=== PATIENT | female | born 1955 | race Caucasian/White ===

== ENCOUNTER → 2018-02-05 | Outpatient (CLI) | payer MEDICARE ==
[~2018-02-05] MED LIST: CONTRAST GIVEN. MC
[2018-02-05] MEDS: LIDOCAINE WITH 8.4% SOD BICARB 3 ML DISP.SYRIN. INJ (12:29)
[2018-02-05] MEDS: IOHEXOL 300 MG/ML 50 ML VIAL. INT ART (12:30)
[2018-02-05] MEDS: methylPREDNISolone ACETATE 80 MG/ML VIAL. INJ (12:30)
[2018-02-05] MEDS: BUPIVACAINE 0.5% 50 ML VIAL. INJ (12:30)
== END | disposition home or self-care (01) ==
LOC: RAD 11:34
DX: M16.12 Unilateral primary osteoarthritis, left hip (principal); M51.36 Other intervertebral disc degeneration, lumbar region
CPT/HCPCS: 20605; 77002; J1040; J3490; Q9967

== ENCOUNTER 2020-05-03 13:19 | Inpatient (IN) | payer MEDICARE ==
[~2020-05-03] VITALS: Ht 177.8 cm; Wt 121.9 kg
--- NOTE | 2020-05-03 13:49 | PHYS DOC ---
Past Medical History Past Medical History: Hypertension Drug Use: None General Adult EDM: Chief Complaint: WEAKNESS/GENERALIZED HPI: HPI: Patient is a 64 year old female who presents with left-sided weakness. Patient's last known normal was 2 days ago when she had paralysis of her left leg and left arm. Patient states this lasted for hours and she has had persistent weakness and fatigue since then. Patient denies any pain other than some pain that is chronic in her left leg. Patient denies any recent illnesses such as fever, chills, cough, vomiting or diarrhea. Patient denies any shortness of breath. Review of Systems: Review of Systems: Constitutional: Denies fever or chills. [] Eyes: Denies change in visual acuity. [] HENT: Denies nasal congestion or sore throat. [] Respiratory: Denies cough or shortness of breath. [] Cardiovascular: Denies chest pain, complains of chronic edema of the legs GI: Denies abdominal pain, nausea, vomiting, bloody stools or diarrhea. [] : Denies dysuria. [] Musculoskeletal: Denies back pain or joint pain. [] Integument: Denies rash. [] Neurologic: Denies headache complains of left-sided weakness and numbness Endocrine: Denies polyuria or polydipsia. [] Lymphatic: Denies swollen glands. [] Psychiatric: Denies depression or anxiety. [] Heart Score: Risk Factors: Risk Factors: DM, Current or recent (<one month) smoker, HTN, HLP, family history of CAD, obesity. Risk Scores: Score 0 - 3: 2.5% MACE over next 6 weeks - Discharge Home Score 4 - 6: 20.3% MACE over next 6 weeks - Admit for Clinical Observation Score 7 - 10: 72.7% MACE over next 6 weeks - Early Invasive Strategies Current Medications: Current Medications Clopidogrel Bisulfate (Plavix) 75 mg 1X ONCE PO Last administered on 05/03/20at 15:30; Start 05/03/20 at 15:15; Stop 05/03/20 at 15:16; Status DC Ondansetron HCl (Zofran) 4 mg PRN Q8HRS PRN IV NAUSEA/VOMITING; Start 05/03/20 at 15:30; Stop 05/04/20 at 15:29 Allergies: Allergies: Allergies Coded Allergies Type Severity Reaction Last Updated Verified No Known Drug Allergies 02/05/18 No Physical Exam: PE: Constitutional: Well developed, well nourished, no acute distress, non-toxic appearance. [] HENT: Normocephalic, atraumatic, bilateral external ears normal, no trismus nose normal. [] Eyes: PERRLA, EOMI, conjunctiva normal, no discharge. [] Neck: Normal range of motion, no tenderness, supple, no stridor. [] Cardiovascular: Tachycardic, peripheral pulses are intact, cap refill is brisk Lungs & Thorax: Bilateral breath sounds clear, no respiratory distress Abdomen soft, no tenderness, no masses, no pulsatile masses. [] Skin: Warm, dry, no erythema, no rash. [] Back: No tenderness, no CVA tenderness. [] Extremities: 2-3+ bilateral lower extremities edema, weakness to left lower extremity Neurologic: Alert and oriented X 3, weakness to left lower extremity, mild weakness left upper extremity, decreased sensation to the left side, cranial nerves II through XII grossly intact Psychologic: Affect normal, judgement normal, mood normal. [] Current Patient Data: Labs: Laboratory Tests Test 05/03/20 14:05 White Blood Count 7.0 x10^3/uL Red Blood Count 4.29 x10^6/uL Hemoglobin 12.3 g/dL Hematocrit 36.3 % Mean Corpuscular Volume 85 fL Mean Corpuscular Hemoglobin 29 pg Mean Corpuscular Hemoglobin Concent 34 g/dL Red Cell Distribution Width 13.0 % Platelet Count 177 x10^3/uL Neutrophils (%) (Auto) 70 % Lymphocytes (%) (Auto) 23 % Monocytes (%) (Auto) 5 % Eosinophils (%) (Auto) 2 % Basophils (%) (Auto) 1 % Neutrophils # (Auto) 4.9 x10^3/uL Lymphocytes # (Auto) 1.6 x10^3/uL Monocytes # (Auto) 0.3 x10^3/uL Eosinophils # (Auto) 0.1 x10^3/uL Basophils # (Auto) 0.0 x10^3/uL Prothrombin Time 13.3 SEC Prothromb Time International Ratio 1.1 Activated Partial Thromboplast Time 32 SEC Sodium Level 139 mmol/L Potassium Level 4.4 mmol/L Chloride Level 101 mmol/L Carbon Dioxide Level 29 mmol/L Anion Gap 9 Blood Urea Nitrogen 26 mg/dL Creatinine 0.8 mg/dL Estimated GFR (Cockcroft-Gault) 71.8 BUN/Creatinine Ratio 33 Glucose Level 304 mg/dL Calcium Level 9.5 mg/dL Total Bilirubin 0.3 mg/dL Aspartate Amino Transf (AST/SGOT) 17 U/L Alanine Aminotransferase (ALT/SGPT) 21 U/L Alkaline Phosphatase 122 U/L Troponin I Quantitative < 0.017 ng/mL Total Protein 7.4 g/dL Albumin 3.4 g/dL Albumin/Globulin Ratio 0.9 Current Medications Medications (Trade) Dose Ordered Sig/John Route PRN Reason Start Time Stop Time Status Last Admin Dose Admin Clopidogrel Bisulfate (Plavix) 75 mg 1X ONCE PO 05/03/20 15:15 05/03/20 15:16 DC 05/03/20 15:30 Ondansetron HCl (Zofran) 4 mg PRN Q8HRS PRN IV NAUSEA/VOMITING 05/03/20 15:30 05/04/20 15:29 Vital Signs: Vital Signs Date Time Temp Pulse Resp B/P (MAP) Pulse Ox O2 Delivery O2 Flow Rate FiO2 05/03/20 13:43 98.1 105 18 198/108 (138 94 Room Air 98.1 EKG: EKG: [] EKG interpreted by me sinus tach with a rate of 103, left axis deviation, normal intervals, nonspecific ST changes Radiology/Procedures: Radiology/Procedures: [][facility] [address] [place] [address] IMAGING REPORT Signed PATIENT: BESSIE SHOEMAKER ACCOUNT: [id number] : 1955 LOCATION: ER AGE: 64 SEX: F EXAM STATUS: REG ER ORD. PHYSICIAN: TOVA MAKI MD REASON: LEFT WEAKNESS PROCEDURE: CT HEAD WO CONTRAST CT Head W/O Contrast: History: Reason: LEFT WEAKNESS / Spl. Instructions: / History: Comparison: none Axial images were obtained without contrast. The koch and white matter appears normal and symmetrical for the patients age. There is no mass effect, extraaxial fluid collections or hydrocephalus. There is no gross bleed. There is no focal loss of koch-white matter distinction to suggest acute ischemia, i.e. stroke. Impression: No acute findings. RS Compliance Statement: One or more of the following individualized dose reduction techniques were utilized for this examination: 1. Automated exposure control 2. Adjustment of the mA and/or kV according to patient size 3. Use of iterative reconstruction technique Electronically signed by: Kalen Beach III, MD (05/03/2020 2:41 PM) [facility] DICTATED and SIGNED BY: KALEN BEACH III, MD DATE: 05/03/20 1441 [facility] [address] [place] [address] IMAGING REPORT Signed PATIENT: BESSIE SHOEMAKER ACCOUNT: [id number] : 1955 LOCATION: ER AGE: 64 SEX: F EXAM STATUS: REG ER ORD. PHYSICIAN: TOVA MAKI MD REASON: LEFT SIDED WEAKNESS PROCEDURE: PORTABLE CHEST 1V EXAM: CHEST 1 VIEW History: Left-sided weakness COMPARISON: 08/15/2006 TECHNIQUE: Single portable radiograph of the chest FINDINGS: The cardiac silhouette is unremarkable. The lungs are clear bilaterally. The costophrenic sulci are clear and well demarcated. IMPRESSION: No radiographic evidence of an acute cardiopulmonary process. Electronically signed by: Ton Weaver MD (05/03/2020 2:04 PM) [id number] DICTATED and SIGNED BY: TON WEAVER MD DATE: 05/03/20 1404 Course & Med Decision Making: Course & Med Decision Making Pertinent Labs and Imaging studies reviewed. (See chart for details) [] 1a Level of Consciousness: 0 = Alert; keenly responsive. 1b LOC Questions: 0 = Answers both questions correctly. 1c 0 = Performs both tasks correctly. 2 Best Gaze: 0 = Normal. 3. Visual: 0 = No visual loss. 4. Facial Palsy: 0 = Normal symmetrical movements. 5. Motor Arm: Left 0 = No drift; limb holds 90 (or 45) degrees for full 10 seconds. Right 0 = No drift; limb holds 90 (or 45) degrees for full 10 seconds. 6. Motor Leg: Left 3 = No effort against gravity; leg falls to bed immediately. Right 0 = No drift; leg holds 30-degree position for full 5 seconds. 7. Limb Ataxia: 0 8. Sensory: 1 = [id number] sensory loss; patient feels pinprick is less sharp or is dull on the affected side; or there is a loss of superficial pain with pinprick, but patient is aware of being touched. 9. Best Langauge: 0 = No aphasia; normal. 10 Dysarthria: 0 = Normal. 11. Extinction and Inattention (formerly Neglect): 0 = No abnormality. TOTAL: 4 Patient is not a candidate for TPA or interventional neurology due to last known normal of 2 days ago 60-year-old female presents with strokelike symptoms. Patient has a NIH of 4 but last known normal was over 24 hours ago therefore she not candidate for TPA or interventional neurology. Discussed the case with Dr. Monroy who will admit. Neuro consult has been placed Mj Disclaimer: Mj Disclaimer: This electronic medical record was generated, in whole or in part, using a voice recognition dictation system. Departure Departure Impression: Primary Impression: Acute CVA (cerebrovascular accident) Disposition: 09 ADMITTED INPT THIS HOSP Admitting Physician: Michele Monroy Condition: STABLE Referrals: MICHELE MONROY MD (PCP) TOVA MAKI MD May 03, 2020 13:49
--- NOTE | 2020-05-03 14:07 | RAD ---
EXAM: CHEST 1 VIEW History: Left-sided weakness COMPARISON: 08/15/2006 TECHNIQUE: Single portable radiograph of the chest FINDINGS: The cardiac silhouette is unremarkable. The lungs are clear bilaterally. The costophrenic sulci are clear and well demarcated. IMPRESSION: No radiographic evidence of an acute cardiopulmonary process. Electronically signed by: Ton Weaver MD (05/03/2020 2:04 PM) [id number]
[2020-05-03 14:24] LABS: BASO % 1 % (0-3); EOS # 0.1 x10^3/uL (0.0-0.7); EOS % 2 % (0-3); HEMATOCRIT 36.3 % (36.0-47.0); HEMOGLOBIN 12.3 g/dL (12.0-15.5); LYMPH # 1.6 x10^3/uL (1.0-4.8); LYMPH % 23 % (24-48); MEAN CORPUSCULAR HEMOGLOBIN 29 pg (25-35); MEAN CORPUSCULAR HGB CONC 34 g/dL (31-37); MEAN CORPUSCULAR VOLUME 85 fL (79-100); MONO # 0.3 x10^3/uL (0.0-1.1); MONO % 5 % (0-9); NEUT # 4.9 x10^3/uL (1.8-7.7); NEUT % 70 % (31-73); PLATELET COUNT 177 x10^3/uL (140-400); RED BLOOD COUNT 4.29 x10^6/uL (3.50-5.40)
[2020-05-03 14:33] LABS: CALCIUM 9.5 mg/dL (8.5-10.1); CREATININE 0.8 mg/dL (0.6-1.0); GFR 71.8; POTASSIUM 4.4 mmol/L (3.5-5.1)
[2020-05-03 14:34] LABS: PROTHROMBIN TIME PATIENT 13.3 SEC (11.7-14.0)
[2020-05-03 14:37] LABS: ALBUMIN 3.4 g/dL (3.4-5.0); ALBUMIN/GLOBULIN RATIO 0.9 (1.0-1.7); TOTAL BILIRUBIN 0.3 mg/dL (0.2-1.0); TOTAL PROTEIN 7.4 g/dL (6.4-8.2)
--- NOTE | 2020-05-03 14:43 | RAD ---
CT Head W/O Contrast: History: Reason: LEFT WEAKNESS / Spl. Instructions: / History: Comparison: none Axial images were obtained without contrast. The koch and white matter appears normal and symmetrical for the patients age. There is no mass effect, extraaxial fluid collections or hydrocephalus. There is no gross bleed. There is no focal loss of koch-white matter distinction to suggest acute ischemia, i.e. stroke. Impression: No acute findings. RS Compliance Statement: One or more of the following individualized dose reduction techniques were utilized for this examination: 1. Automated exposure control 2. Adjustment of the mA and/or kV according to patient size 3. Use of iterative reconstruction technique Electronically signed by: Alfred Childers III, MD (05/03/2020 2:41 PM) [facility]
[2020-05-03] MEDS ORDERED: CLOPIDOGREL BISULFATE 75 MG TABLET PO ONE (15:15)
[2020-05-03] MEDS ORDERED: ONDANSETRON PF 4 MG/2 ML VIAL. IV PRN (15:30)
[2020-05-03 17:12] LABS: BILIRUBIN,URINE NEGATIVE (NEG); CLARITY,URINE CLEAR; COLOR,URINE YELLOW; NITRITE,URINE NEGATIVE (NEG); PH,URINE 6.5 (<5.0-8.0); PROTEIN,URINE 30 mg/dL (NEG-TRACE); UROBILINOGEN,URINE 0.2 mg/dL (0.2 mg/dL)
[2020-05-03 17:31] LABS: BACTERIA,URINE FEW /HPF (0-FEW); RBC,URINE RARE /HPF (0-2); WBC,URINE OCC /HPF (0-4)
--- NOTE | 2020-05-03 19:10 | NUR ---
Patient arrived to floor around 1900 via bed. NIH preformed with ER nurse PERRY Roland. NIH score 2. MD Emilie paged in regards to patients arrival to floor.
[2020-05-03 19:44] VITALS: BP 155/77
[2020-05-03] MEDS: CYCLOBENZAPRINE 10 MG TABLET. PO PRN (22:21)
[2020-05-03 23:41] VITALS: BP 165/101
[2020-05-04 02:13] VITALS: BP 153/84
[2020-05-04] MEDS ORDERED: CYCL10TA2 PO (03:19)
[2020-05-04] MEDS ORDERED: TRAM50TA PO (03:19)
[2020-05-04] MEDS ORDERED: SMZ/TMP (03:19)
--- NOTE | 2020-05-04 03:59 | RAD ---
INDICATION: Reason: possible cva / Spl. Instructions: / History: . Left-sided weakness. COMPARISON: None. TECHNIQUE: Color, grayscale and doppler ultrasound images obtained of the carotid system bilaterally. Percent stenosis is estimated using criteria that correlates with NASCET methodology. FINDINGS: Peak systolic velocities are as follows in cm/s: Right Carotid System: CCA: 71 ICA: 89 ICA/CCA Ratio 1.2 Left Carotid System: CCA: 73 ICA: 94 ICA/CCA Ratio 1.3 Vertebral arteries are antegrade bilaterally. Mild intimal thickening and plaque. IMPRESSION: * No hemodynamically significant stenosis of the internal carotid arteries bilaterally. Electronically signed by: Jose Henriquez MD (05/04/2020 3:56 AM) [id number]
[2020-05-04 07:00] VITALS: BP 132/53
--- NOTE | 2020-05-04 08:29 | PDOC2 ---
YINA CANTU CHAINSAW MECHANIC 05/04/20 0829: CARDIAC CONSULT DATE OF CONSULT Date of Consult DATE: 05/04/20 TIME: 08:22 REASON FOR CONSULT Reason for Consult: CVA, echo REFERRING PHYSICIAN Referring Physician: Emilie SOURCE Source: Chart review HISTORY OF PRESENT ILLNESS HISTORY OF PRESENT ILLNESS This is a pleasant 64 yo female admitted for complains of chest pain and left sided weakness.Feeling fatigue. What was alarming for her is the onset of left sided weakness. She has debility and basically WC bound due to bad hip and waiting on hip surgery so she could walk again. No visual or auditory disturbances and no dysarthria. Reports on intermittent chest pain and Thursday she felt midchest tightness that radiated to her shoulder and also jaw tightness with nausea and SOA. She is significantly deconditioned being WC bound and reports of DAI with transfers. No hx of CAD nor prior workup. No hx of CVA, a rrhythmias nor VTE and no falls r injury. She does have DM. PAST MEDICAL HISTORY Cardiovascular: HTN, Hyperlipidemia Pulmonary: No pertinent hx CENTRAL NERVOUS SYSTEM: Other (NO pertinent history) GI: GERD Heme/Onc: No pertinent hx Hepatobiliary: No pertinent hx Psych: No pertinent hx Musculoskeletal: Osteoarthritis Rheumatologic: No pertinent hx Infectious disease: No pertinent hx ENT: No pertinent hx Renal/: No pertinent hx Endocrine: Diabetes PAST SURGICAL HISTORY Past Surgical History: No pertinent history FAMILY HISTORY Family History noncontributory SOCIAL HISTORY Smoke: No ALCOHOL: none Drugs: None Lives: Alone CURRENT MEDICATIONS CURRENT MEDICATIONS Current Medications Medications (Trade) Dose Ordered Sig/John Route PRN Reason Start Time Stop Time Status Last Admin Dose Admin Clopidogrel Bisulfate (Plavix) 75 mg 1X ONCE PO 05/03/20 15:15 05/03/20 15:16 DC 05/03/20 15:30 Cyclobenzaprine HCl (Flexeril) 10 mg PRN Q6HRS PRN PO MUSCLE SPASMS 05/03/20 21:00 05/03/20 22:21 ALLERGIES ALLERGIES: Coded Allergies: morphine (Verified Adverse Reaction, Intermediate, N/V DIZZINESS, 05/03/20) tramadol (Verified Adverse Reaction, Intermediate, N/V DIZZINESS, 05/03/20) ROS Review of System 14 point ROS evaluated with pertinent positives noted per HPI PHYSICAL EXAM General: Alert, Oriented X3, Cooperative, No acute distress HEENT: Atraumatic, Mucous membr. moist/pink Lungs: Clear to auscultation, Normal air movement Heart: Regular rate (SR), Normal S1, Normal S2, No murmurs Abdomen: Soft, No tenderness, Other (obese) Extremities: No cyanosis, Other (chronic leg edema) Skin: No breakdown, No significant lesion Neuro: Normal speech, Sensation intact Psych/Mental Status: Mental status NL, Mood NL MUSCULOSKELETAL: Osteoarthritic changes both hands VITALS/I&O VITALS/I&O: Vital Signs Date Time Temp Pulse Resp B/P (MAP) Pulse Ox O2 Delivery O2 Flow Rate FiO2 05/04/20 07:00 97.5 83 19 132/53 (79) 91 Room Air 97.5 I & O 05/03/20 05/03/20 05/04/20 15:00 23:00 07:00 Intake Total 200 ml 1500 ml Output Total 550 ml Balance -350 ml 1500 ml LABS Lab: Laboratory Tests Test 05/03/20 14:05 05/03/20 17:00 05/04/20 07:04 White Blood Count 7.0 x10^3/uL (4.0-11.0) Red Blood Count 4.29 x10^6/uL (3.50-5.40) Hemoglobin 12.3 g/dL (12.0-15.5) Hematocrit 36.3 % (36.0-47.0) Mean Corpuscular Volume 85 fL (79-100) Mean Corpuscular Hemoglobin 29 pg (25-35) Mean Corpuscular Hemoglobin Concent 34 g/dL (31-37) Red Cell Distribution Width 13.0 % (11.5-14.5) Platelet Count 177 x10^3/uL (140-400) Neutrophils (%) (Auto) 70 % (31-73) Lymphocytes (%) (Auto) 23 % (24-48) L Monocytes (%) (Auto) 5 % (0-9) Eosinophils (%) (Auto) 2 % (0-3) Basophils (%) (Auto) 1 % (0-3) Neutrophils # (Auto) 4.9 x10^3/uL (1.8-7.7) Lymphocytes # (Auto) 1.6 x10^3/uL (1.0-4.8) Monocytes # (Auto) 0.3 x10^3/uL (0.0-1.1) Eosinophils # (Auto) 0.1 x10^3/uL (0.0-0.7) Basophils # (Auto) 0.0 x10^3/uL (0.0-0.2) Prothrombin Time 13.3 SEC (11.7-14.0) Prothrombin Time INR 1.1 (0.8-1.1) Activated Partial Thromboplast Time 32 SEC (24-38) Sodium Level 139 mmol/L (136-145) Potassium Level 4.4 mmol/L (3.5-5.1) Chloride Level 101 mmol/L (98-107) Carbon Dioxide Level 29 mmol/L (21-32) Anion Gap 9 (6-14) Blood Urea Nitrogen 26 mg/dL (7-20) H Creatinine 0.8 mg/dL (0.6-1.0) Estimated GFR (Cockcroft-Gault) 71.8 BUN/Creatinine Ratio 33 (6-20) H Glucose Level 304 mg/dL (70-99) H Calcium Level 9.5 mg/dL (8.5-10.1) Total Bilirubin 0.3 mg/dL (0.2-1.0) Aspartate Amino Transferase (AST) 17 U/L (15-37) Alanine Aminotransferase (ALT) 21 U/L (14-59) Alkaline Phosphatase 122 U/L (46-116) H Troponin I Quantitative < 0.017 ng/mL (0.000-0.055) Total Protein 7.4 g/dL (6.4-8.2) Albumin 3.4 g/dL (3.4-5.0) Albumin/Globulin Ratio 0.9 (1.0-1.7) L Urine Collection Type Unknown Urine Color Yellow Urine Clarity Clear Urine pH 6.5 (<5.0-8.0) Urine Specific [place] 1.020 (1.000-1.030) Urine Protein 30 mg/dL (NEG-TRACE) Urine Glucose (UA) >=1000 mg/dL (NEG) Urine Ketones (Stick) Negative mg/dL (NEG) Urine Blood Trace (NEG) Urine Nitrite Negative (NEG) Urine Bilirubin Negative (NEG) Urine Urobilinogen Dipstick 0.2 mg/dL (0.2 mg/dL) Urine Leukocyte Esterase Small (NEG) Urine RBC Rare /HPF (0-2) Urine WBC Occ /HPF (0-4) Urine Squamous Epithelial Cells Few /LPF Urine Bacteria Few /HPF (0-FEW) Urine Mucus Slight /LPF Glucose (Fingerstick) 239 mg/dL (70-99) H Laboratory Tests 05/03/20 14:05 Laboratory Tests 05/03/20 14:05 ASSESSMENT/PLAN ASSESSMENT/PLAN 1. Possible CVA with left sided weakness 2. Chest pain: typical features for CAD 3. HTN urgency: BP better 4. DM2: BG high 5. Obesity Recommendations TSH, lipids, TTE and A1C Pending CVA workup awaiting MRI, she will need ischemic workup. Continue home statin, lisinopril MARK GALLEGOS MD 05/04/20 1504: CARDIAC CONSULT ASSESSMENT/PLAN ASSESSMENT/PLAN Patient seen and evaluated I agree with our nurse practitioners assessment as above. Possible CVA. Patient feeling better. Neurology work-up in progress. Chest discomfort. No acute ischemic changes. Checking troponin. Echocardiogram. Probable outpatient ischemic work-up. Hypertensive urgency. Blood pressure improved on present medical treatment including lisinopril. Hyperlipidemia. Statins. Diabetes mellitus. As per the primary service. Thank you for allowing us to participate in the care of your patient. YINA CANTU APRN May 04, 2020 08:29 MARK GALLEGOS MD May 04, 2020 15:04
--- NOTE | 2020-05-04 08:56 | PDOC ---
Provider Note Date of Service: DATE: 05/04/20 TIME: 08:55 Provider Note dictated- adding statin, lisin, starting lantus/tradjenta as trulicity na here- mri pending, carotids clear, e- suspect cva is midbrain/ posterior circulation Justifications for Admission Other Justification MICHELE MONROY MD May 04, 2020 08:56
--- NOTE | 2020-05-04 09:26 | HP ---
ADMIT DATE: 05/03/2020 HISTORY OF PRESENT ILLNESS: A 52-year-old white female admission when she thought she had a "reaction to tramadol" which she has taken 2 days prior and since that time, has had headache and some weakness of the left arm, leg and a little bit of drooping of the eye. Stroke was suspected. She was sent to the ER where CT scan revealed no bleeding to cause her headache and she was admitted for further neurologic evaluation. Carotid Dopplers were done, which were clear and the echo and MRI of her head are pending at this time. Hemoglobin A1c as an outpatient has been 10-12. She has failed to tolerate metformin and sulfonylureas, which were initially tried for her diabetes. PAST MEDICAL HISTORY: No other significant surgery. No home medicines. No known allergies or medical problems. SOCIAL HISTORY: She lives alone. She [place] out of town. She is significantly impaired by severe arthritis of her hip and is working on getting a motorized scooter and control her diabetes so that she can have a hip replacement. She is a nonsmoker, nondrinker. FAMILY HISTORY: Unremarkable. REVIEW OF SYSTEMS: Unremarkable. OBJECTIVE: ENT: All within normal limits. NECK: No masses, nodes or bruits. LUNGS: Clear. CARDIOVASCULAR: Regular rate. No murmur or tachycardia. ABDOMEN: Soft, benign, obese and nontender. EXTREMITIES: 1-2+ present. Pedal pulses mildly diminished in her feet. NEUROLOGIC: She has . NEUROLOGIC: Very subtle weakness of the left arm and left leg. Speech appears to be intact as did mentation. Cerebellar function grossly unremarkable. Sensory is reduced with dysesthesia present to light touch in both left arm and left leg. ASSESSMENT: Suspect subacute cerebrovascular accident, right sided, likely posterior circulation with midbrain placement. Risk factors will include untreated diabetes primarily. PLAN: Continue workup as above. Aspirin failure, which she takes every day for pain, so Plavix at this point pending Neurologic consultation. MICHELE MONROY MD DR: CHARLEE/kervin JOB#: [id number] / [id number]
--- NOTE | 2020-05-04 10:17 | PDOC2 ---
NEUROLOGY CONSULT Date of Service DOS: DATE: 05/04/20 TIME: 10:11 Reason for Consult Reason for Consult: Stroke symptoms, left-sided weakness Referring Physician Referring Physician: Dr. Henriquez Source Source: Chart review, Patient History of Present Illness History of Present Illness The patient is a 64-year-old right-handed female who took some tramadol on Thursday, 05/01, and noticed complete weakness on the left side of her body. This resolved after several hours and she still has some numbness on the left side. She saw Dr. Henriquez yesterday in the office and he sent her on to the emergency department. She denies any prior history of stroke, seizure, or head injury. She has had poor control of her diabetes and has chronic pain mainly from the left hip. She gets around with a walker or wheelchair. Past Medical History Cardiovascular: HTN, Hyperlipidemia CENTRAL NERVOUS SYSTEM: Periperal neuropathy Psych: Anxiety, Depression Endocrine: Diabetes Past Surgical History Past Surgical History: No pertinent history Family History Family History: No pertinent hx, CAD Social History Social History Single, disabled, tobacco or alcohol Current Medications Current Medications Current Medications Clopidogrel Bisulfate (Plavix) 75 mg 1X ONCE PO Last administered on 05/03/20at 15:30; Start 05/03/20 at 15:15; Stop 05/03/20 at 15:16; Status DC Ondansetron HCl (Zofran) 4 mg PRN Q8HRS PRN IV NAUSEA/VOMITING; Start 05/03/20 at 15:30; Stop 05/04/20 at 15:29 Cyclobenzaprine HCl (Flexeril) 10 mg PRN Q6HRS PRN PO MUSCLE SPASMS Last administered on 05/03/20at 22:21; Start 05/03/20 at 21:00 Atorvastatin Calcium (Lipitor) 20 mg QHS PO ; Start 05/04/20 at 21:00 Clopidogrel Bisulfate (Plavix) 75 mg DAILYWBKFT PO ; Start 05/04/20 at 09:00 Insulin Glargine (Lantus Syringe) 30 unit DAILY10 SQ ; Start 05/04/20 at 10:00 Linagliptin (Tradjenta) 5 mg DAILY PO ; Start 05/04/20 at 09:00 Lisinopril (Prinivil) 10 mg DAILY PO ; Start 05/04/20 at 09:00 Active Scripts Active Reported [Smz/Tmp] Cyclobenzaprine Hcl 10 Mg Tablet 1 Tab PO PRN BID PRN Tramadol Hcl 50 Mg Tablet 1 Tab PO TID PRN Allergies Allergies: Coded Allergies: morphine (Verified Adverse Reaction, Intermediate, N/V DIZZINESS, 05/03/20) tramadol (Verified Adverse Reaction, Intermediate, N/V DIZZINESS, 0) ROS Review of System Negative for fever, chills, weight loss, shortness of breath, chest pain, indigestion, hematochezia, melena, and dysuria. Full 14-point review of systems is negative. Physical Exam Physical Examination General: Well-developed, well-nourished white female in no acute distress HEENT: Normocephalic andatraumatic. Temporal arteriespulsatile and nontender. Neck: Supple without bruit, no meningismus Musculoskeletal: Stability:see neurologic. Gait exam:see neurologic. Tone:see neurologic.Strength:see neurologic. Neurological: Mental Status:intact, orientation, memory, attention span/concentration, language, fund of knowledge normal. Cranial Nerves:Pupils equal and reactive to light, extraocular movements areintact, visual valencia are full to confrontation. Facial sensation is normal. There is no facial asymmetry. Vestibulo-ocular reflex is intact. Palate elevates and tongue protrudes in midline. All other cranial related problems are negative except as mentioned before.Reflexes:1+ and symmetric with flexor plantar responses. Motor:Splints left leg due to pain, can develop full strength in all extremities. Coordination:Finger-nose finger is normal. Rapid alternating movements and fine finger movements are intact. Gait:Not tested. Sensory:Stocking loss, worse on the left Vitals VITALS Vital Signs Date Time Temp Pulse Resp B/P (MAP) Pulse Ox O2 Delivery O2 Flow Rate FiO2 05/04/20 07:00 97.5 83 19 132/53 (79) 91 Room Air 97.5 Labs Labs Laboratory Tests Test 05/03/20 14:05 05/03/20 17:00 05/04/20 07:04 05/04/20 09:00 White Blood Count 7.0 x10^3/uL (4.0-11.0) Red Blood Count 4.29 x10^6/uL (3.50-5.40) Hemoglobin 12.3 g/dL (12.0-15.5) Hematocrit 36.3 % (36.0-47.0) Mean Corpuscular Volume 85 fL (79-100) Mean Corpuscular Hemoglobin 29 pg (25-35) Mean Corpuscular Hemoglobin Concent 34 g/dL (31-37) Red Cell Distribution Width 13.0 % (11.5-14.5) Platelet Count 177 x10^3/uL (140-400) Neutrophils (%) (Auto) 70 % (31-73) Lymphocytes (%) (Auto) 23 % (24-48) Monocytes (%) (Auto) 5 % (0-9) Eosinophils (%) (Auto) 2 % (0-3) Basophils (%) (Auto) 1 % (0-3) Neutrophils # (Auto) 4.9 x10^3/uL (1.8-7.7) Lymphocytes # (Auto) 1.6 x10^3/uL (1.0-4.8) Monocytes # (Auto) 0.3 x10^3/uL (0.0-1.1) Eosinophils # (Auto) 0.1 x10^3/uL (0.0-0.7) Basophils # (Auto) 0.0 x10^3/uL (0.0-0.2) Prothrombin Time 13.3 SEC (11.7-14.0) Prothromb Time International Ratio 1.1 (0.8-1.1) Activated Partial Thromboplast Time 32 SEC (24-38) Sodium Level 139 mmol/L (136-145) Potassium Level 4.4 mmol/L (3.5-5.1) Chloride Level 101 mmol/L (98-107) Carbon Dioxide Level 29 mmol/L (21-32) Anion Gap 9 (6-14) Blood Urea Nitrogen 26 mg/dL (7-20) Creatinine 0.8 mg/dL (0.6-1.0) Estimated GFR (Cockcroft-Gault) 71.8 BUN/Creatinine Ratio 33 (6-20) Glucose Level 304 mg/dL (70-99) Calcium Level 9.5 mg/dL (8.5-10.1) Total Bilirubin 0.3 mg/dL (0.2-1.0) Aspartate Amino Transf (AST/SGOT) 17 U/L (15-37) Alanine Aminotransferase (ALT/SGPT) 21 U/L (14-59) Alkaline Phosphatase 122 U/L (46-116) Troponin I Quantitative < 0.017 ng/mL (0.000-0.055) Total Protein 7.4 g/dL (6.4-8.2) Albumin 3.4 g/dL (3.4-5.0) Albumin/Globulin Ratio 0.9 (1.0-1.7) Urine Collection Type Unknown Urine Color Yellow Urine Clarity Clear Urine pH 6.5 (<5.0-8.0) Urine Specific Norris 1.020 (1.000-1.030) Urine Protein 30 mg/dL (NEG-TRACE) Urine Glucose (UA) >=1000 mg/dL (NEG) Urine Ketones (Stick) Negative mg/dL (NEG) Urine Blood Trace (NEG) Urine Nitrite Negative (NEG) Urine Bilirubin Negative (NEG) Urine Urobilinogen Dipstick 0.2 mg/dL (0.2 mg/dL) Urine Leukocyte Esterase Small (NEG) Urine RBC Rare /HPF (0-2) Urine WBC Occ /HPF (0-4) Urine Squamous Epithelial Cells Few /LPF Urine Bacteria Few /HPF (0-FEW) Urine Mucus Slight /LPF Glucose (Fingerstick) 239 mg/dL (70-99) Thyroid Stimulating Hormone (TSH) 1.216 uIU/mL (0.358-3.74) Laboratory Tests Test 05/03/20 14:05 05/03/20 17:00 05/04/20 07:04 05/04/20 09:00 White Blood Count 7.0 x10^3/uL (4.0-11.0) Red Blood Count 4.29 x10^6/uL (3.50-5.40) Hemoglobin 12.3 g/dL (12.0-15.5) Hematocrit 36.3 % (36.0-47.0) Mean Corpuscular Volume 85 fL (79-100) Mean Corpuscular Hemoglobin 29 pg (25-35) Mean Corpuscular Hemoglobin Concent 34 g/dL (31-37) Red Cell Distribution Width 13.0 % (11.5-14.5) Platelet Count 177 x10^3/uL (140-400) Neutrophils (%) (Auto) 70 % (31-73) Lymphocytes (%) (Auto) 23 % (24-48) Monocytes (%) (Auto) 5 % (0-9) Eosinophils (%) (Auto) 2 % (0-3) Basophils (%) (Auto) 1 % (0-3) Neutrophils # (Auto) 4.9 x10^3/uL (1.8-7.7) Lymphocytes # (Auto) 1.6 x10^3/uL (1.0-4.8) Monocytes # (Auto) 0.3 x10^3/uL (0.0-1.1) Eosinophils # (Auto) 0.1 x10^3/uL (0.0-0.7) Basophils # (Auto) 0.0 x10^3/uL (0.0-0.2) Prothrombin Time 13.3 SEC (11.7-14.0) Prothromb Time International Ratio 1.1 (0.8-1.1) Activated Partial Thromboplast Time 32 SEC (24-38) Sodium Level 139 mmol/L (136-145) Potassium Level 4.4 mmol/L (3.5-5.1) Chloride Level 101 mmol/L (98-107) Carbon Dioxide Level 29 mmol/L (21-32) Anion Gap 9 (6-14) Blood Urea Nitrogen 26 mg/dL (7-20) Creatinine 0.8 mg/dL (0.6-1.0) Estimated GFR (Cockcroft-Gault) 71.8 BUN/Creatinine Ratio 33 (6-20) Glucose Level 304 mg/dL (70-99) Calcium Level 9.5 mg/dL (8.5-10.1) Total Bilirubin 0.3 mg/dL (0.2-1.0) Aspartate Amino Transf (AST/SGOT) 17 U/L (15-37) Alanine Aminotransferase (ALT/SGPT) 21 U/L (14-59) Alkaline Phosphatase 122 U/L (46-116) Troponin I Quantitative < 0.017 ng/mL (0.000-0.055) Total Protein 7.4 g/dL (6.4-8.2) Albumin 3.4 g/dL (3.4-5.0) Albumin/Globulin Ratio 0.9 (1.0-1.7) Urine Collection Type Unknown Urine Color Yellow Urine Clarity Clear Urine pH 6.5 (<5.0-8.0) Urine Specific Norris 1.020 (1.000-1.030) Urine Protein 30 mg/dL (NEG-TRACE) Urine Glucose (UA) >=1000 mg/dL (NEG) Urine Ketones (Stick) Negative mg/dL (NEG) Urine Blood Trace (NEG) Urine Nitrite Negative (NEG) Urine Bilirubin Negative (NEG) Urine Urobilinogen Dipstick 0.2 mg/dL (0.2 mg/dL) Urine Leukocyte Esterase Small (NEG) Urine RBC Rare /HPF (0-2) Urine WBC Occ /HPF (0-4) Urine Squamous Epithelial Cells Few /LPF Urine Bacteria Few /HPF (0-FEW) Urine Mucus Slight /LPF Glucose (Fingerstick) 239 mg/dL (70-99) Thyroid Stimulating Hormone (TSH) 1.216 uIU/mL (0.358-3.74) Images Images CT Head W/O Contrast: History: Reason: LEFT WEAKNESS / Spl. Instructions: / History: Comparison: none Axial images were obtained without contrast. The koch and white matter appears normal and symmetrical for the patients age. There is no mass effect, extraaxial fluid collections or hydrocephalus. There is no gross bleed. There is no focal loss of koch-white matter distinction to suggest acute ischemia, i.e. stroke. Impression: No acute findings. Doppler carotids: Peak systolic velocities are as follows in cm/s: Right Carotid System: CCA: 71 ICA: 89 ICA/CCA Ratio 1.2 Left Carotid System: CCA: 73 ICA: 94 ICA/CCA Ratio 1.3 Vertebral arteries are antegrade bilaterally. Mild intimal thickening and plaque. IMPRESSION: * No hemodynamically significant stenosis of the internal carotid arteries bilaterally. Assessment/Plan Assessment/Plan Impression: This is a strange story for a stroke with complete hemiplegia resolving after 5 hours, apparently after taking some tramadol. I suspect this is just some em bellishment on her chronic left hip pain. There is evidence of neuropathy most likely from diabetes. Recommendations: Await brain MRI Rehabilitation screening Stroke orders Aim for discharge as soon as later today if MRI negative. Thank you for letting me help with the patient's care. CLEMENTINA MEIER MD May 04, 2020 10:16
--- NOTE | 2020-05-04 10:22 | RAD ---
EXAM: Brain MRI without contrast. HISTORY: Left-sided weakness. TECHNIQUE: Multiplanar, multisequence magnetic resonance imaging of the brain was performed without contrast. COMPARISON: CT dated 05/03/2020. FINDINGS: There is no restricted diffusion to suggest acute or subacute infarction. There is no susceptibility effect to suggest hemorrhage. There is no mass effect or midline shift. There is no hydrocephalus. There are scattered focal areas of signal change within the cerebral white matter, a nonspecific finding which is most commonly due to chronic small vessel disease in patients of this age. There are normal flow voids within the cerebral vessels. No calvarial lesion is seen. The orbits are unremarkable. There is a suspected mucous retention cyst within the left superior sphenoid sinus. The mastoid air cells are clear. IMPRESSION: 1. No acute intracranial finding. 2. Scattered focal areas of signal change within the cerebral white matter, most commonly due to chronic small vessel disease in patients of this age. Electronically signed by: Debi Lynne MD (05/04/2020 10:19 AM) [id number]
[2020-05-04] MEDS: LINAGLIPTIN 5 MG TABLET PO SCH (11:56)
[2020-05-04] MEDS: CLOPIDOGREL BISULFATE 75 MG TABLET PO SCH (11:56)
[2020-05-04] MEDS: LISINOPRIL 10 MG TABLET PO SCH (11:56)
--- NOTE | 2020-05-04 11:56 | NUR ---
SS following for discharge planning. SS reviewed pt chart and discussed with pt RN. Pt is from home and is currently on room air. PT/OT/ ST ordered. SS will continue to follow for discharge planning.
[2020-05-04] MEDS: INSULIN GLARGINE SYRINGE. SQ SCH (12:03)
--- NOTE | 2020-05-04 13:27 | NUR ---
Bedside Swallow Evaluation completed. Please refer to full report in intervention section for additional details. Impressions: Functional oropharyngeal swallow w/o s/s aspiration. Pt appears at low risk of aspiration for all consistencies. Mastication inefficiency is present d/t missing and broken teeth, however pt independently manages and reports this has been an ongoing issue for years. Recommendations: Continue regular diet w/ thin liquids. General swallow precautions. No ST f/u indicated at this time. D/w pt at bedside during noon meal. D/w RN.
--- NOTE | 2020-05-04 14:53 | CARD ---
MR#: [id number] Date of Study: 05/04/2020 Ordering Physician: CLEMENTINA MEIER, Referring Physician: CLEMENTINA MEIER, Tech: Linda Avelar APPROVED REPORT EXAM: Two-dimensional echocardiogram with contrast. Other Information Quality : AverageHR: 83bpm Technically limited study due to body habitus. INDICATION CVA/TIA Echo Enhancing Agent Indication: Rule Out Septal Defect Agent/Amount Used: Agitated Saline 10mL 2D DIMENSIONS RVDd3.1 (2.9-3.5cm)Left Atrium(2D)4.2 (1.6-4.0cm) IVSd1.3 (0.7-1.1cm)Aortic Root(2D)3.3 (2.0-3.7cm) LVDd5.1 (3.9-5.9cm)PWd1.2 (0.7-1.1cm) LVDs2.9 (2.5-4.0cm)FS (%) 43.8 % SV91.5 mlLVEF(%)74.7 (>50%) Aortic Valve AoV Peak Nilo.170.9cm/sAoV VTI35.6cm AO Peak GR.11.7mmHgLVOT Peak Nilo.120.7cm/s AO Mean GR.6mmHgAI P 1/2 [id number] Mitral Valve MV E Ufkqqecl75.4cm/sMV DECEL [id number] MV A Fspjsdsn260.3cm/sE/A Ratio0.7 Pulmonary Valve PV Peak Qsssbucf294.0cm/s Pulmonary Vein S1 Tywcyfnc88.4cm/sD2 Shgxtagd29.8cm/s PVa [id number] LEFT VENTRICLE The left ventricle is normal size. There is mild to moderate concentric left ventricular hypertrophy. The left ventricular systolic function is normal. The Ejection Fraction is 60-65%. There is normal L V segmental wall motion. Transmitral Doppler flow pattern is Grade I-abnormal relaxation pattern. RIGHT VENTRICLE The right ventricle is normal size. There is normal right ventricular wall thickness. The right ventr icular systolic function is normal. ATRIA The left atrium size is normal. The right atrium size is normal. The interatrial septum is intact wit h no evidence for an atrial septal defect or patent foramen ovale as noted on 2-D or Doppler imaging. Bubble study appears negative. AORTIC VALVE The aortic valve is thickened but opens well. Doppler and Color Flow revealed trace aortic regurgitat ion. There is no significant aortic valvular stenosis. Calculated aortic valve area is cm2 with maxim um pressure gradient of 12 mmHg and mean pressure gradient of 6 mmHg. MITRAL VALVE The mitral valve is normal in structure and function. There is no evidence of mitral valve prolapse. There is no mitral valve stenosis. Doppler and Color-flow revealed trace mitral regurgitation. TRICUSPID VALVE The tricuspid valve is normal in structure and function. Doppler and Color Flow revealed no tricuspid valve regurgitation noted. There is no tricuspid valve stenosis. PULMONIC VALVE The pulmonic valve is not well visualized. Doppler and Color Flow revealed trace pulmonic valvular re gurgitation. GREAT VESSELS The aortic root is normal in size. The IVC was not visualized. PERICARDIAL EFFUSION There is no evidence of significant pericardial effusion. Critical Notification Critical Value: No <Conclusion> The left ventricular systolic function is normal. The Ejection Fraction is 60-65%. There is normal LV segmental wall motion. Transmitral Doppler flow pattern is Grade I-abnormal relaxation pattern. Trace mitral regurgitation. There is no evidence of significant pericardial effusion. Bubble study appears negative for interatrial shunt. Recommend ROBB if clinical suspicion is high. Signed by : Leroy Shaffer, Electronically Approved : 05/04/2020 14:52:32
[2020-05-04 15:00] VITALS: BP 126/70
[2020-05-04 19:40] VITALS: BP 119/59
[2020-05-04] MEDS: CYCLOBENZAPRINE 10 MG TABLET. PO PRN (20:43)
[2020-05-04] MEDS ORDERED: ATORVASTATIN CALCIUM 20 MG TABLET PO SCH (21:00)
[2020-05-04 23:19] VITALS: BP 131/67
[2020-05-05 03:45] VITALS: BP 125/60
[2020-05-05 05:11] LABS: HEMOGLOBIN A1C 11.2 % (4.8-5.6)
[2020-05-05 05:27] LABS: CHOLESTEROL/HDL RATIO 2.7
[2020-05-05 07:00] VITALS: BP 124/72
[2020-05-05] MEDS: LINAGLIPTIN 5 MG TABLET PO SCH (08:40)
[2020-05-05] MEDS: CLOPIDOGREL BISULFATE 75 MG TABLET PO SCH (08:40)
[2020-05-05] MEDS: LISINOPRIL 10 MG TABLET PO SCH (08:40)
[2020-05-05] MEDS: INSULIN GLARGINE SYRINGE. SQ SCH (09:44)
--- NOTE | 2020-05-05 10:54 | PDOC ---
Provider Note Date of Service: DATE: 05/05/20 TIME: 10:52 Provider Note [id number] Justifications for Admission Other Justification MICHELE MONROY MD May 05, 2020 10:54
[2020-05-05 11:00] VITALS: BP 115/69
--- NOTE | 2020-05-05 11:53 | DS ---
DATE OF DISCHARGE: 05/05/2020 HOSPITAL SUMMARY: A 64-year-old white female with uncontrolled diabetes due to nontreatment came in with 2-day history of weakness in the left arm and leg, numbness and tingling in the left arm and leg and a little bit of facial droop. There is headache present with no other symptoms. CT scan of the head was negative for bleed and MRI showed no evidence of CVA or brain tumor. Carotid Doppler studies were unremarkable as well as the echocardiogram. Blood sugars were high around 200-300 and hemoglobin A1c was consistent with outpatient values of 11.2. TSH was normal. Renal function was normal as well. Lipid profile showed excellent numbers with a cholesterol of 137, HDL of 50 and LDL of 65. She was treated with Plavix. She takes aspirin only every day and statin and lisinopril were added as well. Her neurologic status has improved. Her symptoms are largely gone. Blood sugars are better with the use of Lantus and she is comfortable to be followed as an outpatient. FINAL DIAGNOSES: 1. Transient ischemic attack, right midbrain, with left sided weakness. 2. Uncontrolled type 2 diabetes mellitus. 3. Severe degenerative joint disease of the left hip. OPERATIONS AND PROCEDURES: None. COMPLICATIONS: None. CONSULTATIONS: Dr. Martel. DISPOSITION: She will start Trulicity 0.75 mg subcutaneous weekly and Januvia 100 mg daily when she gets those from the supplier. She will continue aspirin 81 mg daily. Does not need a statin given her lipids and will follow without blood pressure medicine for now. She takes tramadol for hip pain. She is aware that she needs a hip replacement, but until her diabetes is controlled, she cannot have that done. Office followup is scheduled to see if she responds to the new diabetic medications. MICHELE MONROY MD DR: CHARLEE/kervin JOB#: [id number] / [id number]
--- NOTE | 2020-05-05 12:30 | NUR ---
Discharge Note: BESSIE SHOEMAKER [address] Discharge instructions and discharge home medications reviewed with Patient and a copy given. Reviewed patient medication per Dr. Henriquez patient is to continue her Trulicity, Tradjenta, Flexeril, and ASA. All questions have been answered and understanding verbalized. The following instructions and handouts were given: Stroke Prevention, Diabetic Diet Discontinued lines and drains: IV discontinued. Catheter intact. Bleeding Stopped. Bandage Applied. Pt taken to private vehicle by wheelchair accompanied by FEED PREPARATION OPERATOR and RN. Patient discharged to Home with Self Care.
[2020-05-06] MEDS ORDERED: ASPIRIN CHEWABLE 81 MG TABLET. PO SCH (08:00)
== END 2020-05-05 13:00 | disposition home or self-care (01) | DRG 69 ==
LOC: ER 13:19 → ED HOLD 15:18 → 2 SOUTH 16:23
PROVIDERS: ADMIT Family Medicine; ATTEND Family Medicine
DX: G45.9 Transient cerebral ischemic attack, unspecified (principal); G81.90 Hemiplegia, unspecified affecting unspecified side; E11.65 Type 2 diabetes mellitus with hyperglycemia; E66.9 Obesity, unspecified; E78.5 Hyperlipidemia, unspecified; G83.14 Monoplegia of lower limb affecting left nondominant side; I10 Essential (primary) hypertension; G89.29 Other chronic pain; I16.0 Hypertensive urgency; I25.10 Atherosclerotic heart disease of native coronary artery without angina pectoris; M16.12 Unilateral primary osteoarthritis, left hip; Z99.3 Dependence on wheelchair; F32.9 Major depressive disorder, single episode, unspecified; F41.9 Anxiety disorder, unspecified; K21.9 Gastro-esophageal reflux disease without esophagitis; M19.90 Unspecified osteoarthritis, unspecified site; Z68.38 Body mass index [BMI] 38.0-38.9, adult; Z60.2 Problems related to living alone
CPT/HCPCS: 36415; 70450; 70551; 71045; 80053; 80061; 81001; 82962; 83036; 84443; 84484; 85025; 85610; 85730; 87077; 87086; 87186; 93005; 93306; 93880; J1815; 92610-GN; 99285-25; G0378

== ENCOUNTER 2020-07-26 18:51 | Inpatient (IN) | payer MEDICARE ==
[~2020-07-26] VITALS: Ht 177.8 cm; Wt 137.5 kg
[~2020-07-26 18:51] MED LIST changes: -CONTRAST GIVEN. MC; +CYCL10TA2 PO; +SMZ/TMP; +TRAM50TA PO
[2020-07-26] MEDS ORDERED: LIDOCAINE (700MG/PATCH) PATCH. TD ONE (19:16)
--- NOTE | 2020-07-26 19:47 | PHYS DOC ---
Past Medical History Past Medical History: Hypertension Past Surgical History: No Surgical History Smoking Status: Current Every Day Smoker Alcohol Use: None Drug Use: None General Adult EDM: Chief Complaint: HIP PAIN HPI: HPI: 64-year-old female past medical history significant for obesity, HTN, poorly controlled insulin-dependent diabetes and bilateral hip arthritis, presents to the ED with complaints of severe left hip pain, stating "Did I fracture it?" Took tramadol prior to arrival with minimal relief. Patient states that she uses a seated walker and gets around by moving backwards and extending her legs. No longer can extend her legs to put weight on them, particularly her left hip. Denies any falls or trauma. Is not on any anticoagulants. Follows with Dr. Monroy who has ordered her a home hospital bed and told her her diabetes needs to be better managed prior to any surgery. Review of Systems: Review of Systems: Constitutional: Denies fever or chills. [] Eyes: Denies change in visual acuity. [] HENT: Denies nasal congestion or sore throat. [] Respiratory: Denies cough or shortness of breath. [] Cardiovascular: Denies chest pain or edema. [] GI: Denies abdominal pain, nausea, vomiting, bloody stools or diarrhea. [] : Denies dysuria, urinary or bowel retention or incontinence, Musculoskeletal: Denies back pain or or flank pain Integument: Denies rash or diaphoresis Neurologic: Denies headache, neck pain, saddle anesthesia, focal weakness or sensory changes. [] Endocrine: Denies polyuria or polydipsia. [] Lymphatic: Denies swollen glands. [] Psychiatric: Denies depression or anxiety. [] Heart Score: Risk Factors: Risk Factors: DM, Current or recent (<one month) smoker, HTN, HLP, family history of CAD, obesity. Risk Scores: Score 0 - 3: 2.5% MACE over next 6 weeks - Discharge Home Score 4 - 6: 20.3% MACE over next 6 weeks - Admit for Clinical Observation Score 7 - 10: 72.7% MACE over next 6 weeks - Early Invasive Strategies Current Medications: Current Medications Medications (Trade) Dose Ordered Sig/John Start Time Stop Time Status Last Admin Dose Admin Lidocaine (Lidoderm) 1 patch 1X ONCE 07/26/20 19:16 07/26/20 19:17 DC Allergies: Allergies: Allergies Coded Allergies Type Severity Reaction Last Updated Verified morphine Adverse Reaction Intermediate N/V DIZZINESS 05/03/20 Yes tramadol Adverse Reaction Intermediate N/V DIZZINESS 05/03/20 Yes Physical Exam: PE: Constitutional: Very uncomfortable/crying, difficulty extending hip/knees - has to move very slow (functional level appears that pt is bed-bound) HENT: Normocephalic, atraumatic, Eyes: EOMI, conjunctiva normal, no discharge. Neck: Normal range of motion, supple, Cardiovascular: S1/2 present, regular rhythm Lungs & Thorax: Speaking in full sentences, bilateral equal chest rise, no tachypnea or increased work of breathing Abdomen: soft, no tenderness, Skin: Warm, dry, no erythema, no rash. [] Back: No tenderness, no saddle anesthesia Extremities: Focal left hip tenderness, no bruising or deformity, bilateral pedal edema/habitus related, lower extremity pulses intact Neurologic: Alert and oriented X 3, normal motor function, normal sensory function, no focal deficits noted. [] Psychologic: Affect normal, judgement normal, mood normal. [] EKG: EKG: [] Radiology/Procedures: Radiology/Procedures: IMAGING REPORT Signed PATIENT: BESSIE SHOEMAKER ACCOUNT: [id number] : 1955 LOCATION: ER AGE: 64 SEX: F EXAM STATUS: REG ER ORD. PHYSICIAN: COCO OSORIO DO REASON: left hip severe pain PROCEDURE: CT PELVIS WO CONTRAST Exam: CT pelvis without contrast INDICATION: Left severe hip pain TECHNIQUE: Sequential axial images through the pelvis obtained without IV contrast. Sagittal and coronal reformatted images were reconstructed from the axial data and reviewed. Comparisons: 07/26/2020 radiograph FINDINGS: Visualized intrapelvic structures are unremarkable. There is diffuse osteopenia. No acute fracture is identified. There is severe degenerative change at the left hip joint with osseous remodeling of the femoral head. Mild to moderate osteoarthritic change at the right hip joint is noted. Pubic symphysis and sacroiliac joints are well-maintained. Visualized soft tissues a lower extremities are unremarkable. IMPRESSION: No sequela of acute traumatic injury of the pelvis. Severe/end-stage degenerative changes at the left hip. Exposure: One or more of the following in the visualized dose reduction techniques were utilized for this examination: 1. Automated exposure control 2. Adjustment of the MA and/or KV according to patient size 3. Use of iterative of reconstructive technique Electronically signed by: Génesis Panda MD (07/26/2020 9:16 PM) HILDAJUAN CARLOS DICTATED and SIGNED BY: GÉNESIS PANDA MD DATE: 07/26/[id number] 0 IMAGING REPORT Signed PATIENT: BESSIE SHOEMAKER ACCOUNT: [id number] : 1955 LOCATION: ER AGE: 64 SEX: F EXAM STATUS: REG ER ORD. PHYSICIAN: COCO OSORIO DO REASON: left hip severe pain PROCEDURE: CT PELVIS WO CONTRAST Exam: CT pelvis without contrast INDICATION: Left severe hip pain TECHNIQUE: Sequential axial images through the pelvis obtained without IV contrast. Sagittal and coronal reformatted images were reconstructed from the axial data and reviewed. Comparisons: 07/26/2020 radiograph FINDINGS: Visualized intrapelvic structures are unremarkable. There is diffuse osteopenia. No acute fracture is identified. There is severe degenerative change at the left hip joint with osseous remodeling of the femoral head. Mild to moderate osteoarthritic change at the right hip joint is noted. Pubic symphysis and sacroiliac joints are well-maintained. Visualized soft tissues a lower extremities are unremarkable. IMPRESSION: No sequela of acute traumatic injury of the pelvis. Severe/end-stage degenerative changes at the left hip. Exposure: One or more of the following in the visualized dose reduction t echniques were utilized for this examination: 1. Automated exposure control 2. Adjustment of the MA and/or KV according to patient size 3. Use of iterative of reconstructive technique Electronically signed by: Génesis Panda MD (07/26/2020 9:16 PM) DONAL DICTATED and SIGNED BY: GÉNESIS PANDA MD DATE: 07/26/[id number] 0 Course & Med Decision Making: Course & Med Decision Making Pertinent Labs and Imaging studies reviewed. (See chart for details) Concern for exacerbation of chronic left hip pain with end-stage degenerative joint disease, unable to bear weight. I discussed this with orthopedic surgery Dr. Ocampo. Patient aware hip placement is a long process that requires mu ltiple steps (diabetes management, weight loss, etc.)-is aware surgery is not an immediate option. Will admit patient for pain control and further medical management, accepted by her primary care physician Dr. Monroy. Ortho consult placed for their recommendations. Patient stable at time of admission and agrees with this plan. I have spoken with the patient and/or caregivers. I have explained the patient's condition, diagnosis and treatment plan based on the information available to me at this time. I have answered the patient's and/or caregivers questions and answered any concerns. The patient and/or caregivers have as good an understanding of the patient's diagnosis, condition and treatment plan as can be expected at this point. The patient has been stabilized within the capability of the emergency department. The patient will be transported for further care and management or will be moved to an observation or inpatient service. I have communicated with the staff or medical practitioner taking over this patient's care. Mj Disclaimer: Mj Disclaimer: This electronic medical record was generated, in whole or in part, using a voice recognition dictation system. Departure Departure Impression: Primary Impression: Degenerative joint disease of left hip Disposition: ADMITTED INPT THIS HOSP Admitting Physician: Michele Monroy Condition: STABLE Referrals: MICHELE MONROY MD (PCP) COCO OSORIO DO Jul 26, 2020 19:47
[2020-07-26] MEDS ORDERED: HYDROmorphone 2 MG/ML VIAL IVP ONE ×4 (20:00→20:45)
[2020-07-26] MEDS ORDERED: KETOROLAC 15 MG/ML VIAL. IVP ONE (20:45)
[2020-07-26 20:56] LABS: BASO % 1 % (0-3); EOS # 0.2 x10^3/uL (0.0-0.7); EOS % 3 % (0-3); HEMATOCRIT 35.4 % (36.0-47.0); HEMOGLOBIN 11.8 g/dL (12.0-15.5); LYMPH # 1.5 x10^3/uL (1.0-4.8); LYMPH % 21 % (24-48); MEAN CORPUSCULAR HEMOGLOBIN 29 pg (25-35); MEAN CORPUSCULAR HGB CONC 33 g/dL (31-37); MEAN CORPUSCULAR VOLUME 86 fL (79-100); MONO # 0.5 x10^3/uL (0.0-1.1); MONO % 7 % (0-9); NEUT # 4.9 x10^3/uL (1.8-7.7); NEUT % 69 % (31-73); PLATELET COUNT 187 x10^3/uL (140-400); RED BLOOD COUNT 4.12 x10^6/uL (3.50-5.40); RED CELL DISTRIBUTION WIDTH 13.9 % (11.5-14.5); WHITE BLOOD COUNT 7.2 x10^3/uL (4.0-11.0)
--- NOTE | 2020-07-26 20:56 | RAD ---
Single view pelvis, two-view left hip and two-view left femur dated 07/26/2020. No comparison available. Clinical data indication: Pain. FINDINGS: AP view pelvis shows intact pelvic ring. No displaced fracture. There are severe degenerative change of the left hip joint with bone on bone abutment and subchondral sclerosis. Mild to moderate degenera tive change of the right hip joint. 2 views of the left hip show no displaced fracture. No periostitis or bone destruction. 2 views left femur show intact distal femoral shaft. No apparent bone lesion. There is mild tricompar tmental degenerative change at the knee. No apparent joint effusion. IMPRESSION: 1. No acute bony abnormality. 2. Degenerative changes as described above. There is severe left hip DJD. Electronically signed by: Marco Antonio Mclain MD (07/26/2020 8:54 PM) [id number]
[2020-07-26 21:10] LABS: PROTHROMBIN TIME PATIENT 13.2 SEC (11.7-14.0)
[2020-07-26 21:12] LABS: CALCIUM 9.2 mg/dL (8.5-10.1); CREATININE 0.8 mg/dL (0.6-1.0); GFR 71.8; POTASSIUM 4.8 mmol/L (3.5-5.1)
[2020-07-26 21:17] LABS: ALBUMIN 3.5 g/dL (3.4-5.0); ALBUMIN/GLOBULIN RATIO 0.9 (1.0-1.7); TOTAL BILIRUBIN 0.3 mg/dL (0.2-1.0); TOTAL PROTEIN 7.5 g/dL (6.4-8.2)
--- NOTE | 2020-07-26 21:19 | RAD ---
Exam: CT pelvis without contrast INDICATION: Left severe hip pain TECHNIQUE: Sequential axial images through the pelvis obtained without IV contrast. Sagittal and genaro nal reformatted images were reconstructed from the axial data and reviewed. Comparisons: 07/26/2020 radiograph FINDINGS: Visualized intrapelvic structures are unremarkable. There is diffuse osteopenia. No acute fracture is identified. There is severe degenerative change at the left hip joint with osseous remodeling of the femoral head. Mild to moderate osteoarthritic batista e at the right hip joint is noted. Pubic symphysis and sacroiliac joints are well-maintained. Visualized soft tissues a lower extremities are unremarkable. IMPRESSION: No sequela of acute traumatic injury of the pelvis. Severe/end-stage degenerative changes at the left hip. Exposure: One or more of the following in the visualized dose reduction techniques were utilized for this examination: 1. Automated exposure control 2. Adjustment of the MA and/or KV according to patient size 3. Use of iterative of reconstructive technique Electronically signed by: Génesis Aldridge MD (07/26/2020 9:16 PM) DONAL
[2020-07-26] MEDS ORDERED: MORPHINE SULFATE 4 MG/ML VIAL. IV PRN (22:00)
[2020-07-26] MEDS ORDERED: ONDANSETRON PF 4 MG/2 ML VIAL. IV PRN (22:00)
[2020-07-26] MEDS ORDERED: ACETAMINOPHEN 325 MG TABLET. PO PRN (22:00)
[2020-07-26 23:25] VITALS: BP 127/59
--- NOTE | 2020-07-26 23:25 | NUR ---
Patient admitted from ER to room 436 per cart. Admitting diagnosis: Left hip pain with end stage DJD. Patient is allergic to morphine,trulicity and januvia. Patient is alert and oriented x4. Patient lives alone. Patient stated she twisted her left hip a couple of days ago and came to the hospital to see if her hip was broken. Xrays negative for fractures. Patient uses 2 canes to stand and pivot. Patient is unable to walk more than a couple of steps. Consult placed for Dr. Ocampo to see patient. No skin breakdown noted. Patient does have 3+ pitting edema of lower legs and feet. Will continue to monitor.
--- NOTE | 2020-07-27 00:05 | NUR ---
Patient requested that her IV be taken out of her arm. Site is tender and in a "bad location". IV left out at this time. Patient is on oral pain meds.
[2020-07-27] MEDS ORDERED: oxyCODONE/APAP 5/325 1 TAB TABLET PO PRN ×2 (00:15)
[2020-07-27] MEDS ORDERED: traMADol 50 MG TABLET PO PRN (00:15)
[2020-07-27] MEDS ORDERED: CYCLOBENZAPRINE 10 MG TABLET. PO PRN (00:15)
[2020-07-27 03:04] VITALS: BP 139/68
[2020-07-27 07:00] VITALS: BP 130/66
[2020-07-27] MEDS ORDERED: DEXTROSE 50% 25 GM / 50ML DISP.SYRIN. IV PRN (09:00)
--- NOTE | 2020-07-27 09:03 | PDOC ---
Provider Note Date of Service: DATE: 07/27/20 TIME: 09:00 Provider Note [id number] Justifications for Admission Other Justification MICHELE MONROY MD Jul 27, 2020 09:03
--- NOTE | 2020-07-27 09:19 | HP ---
ADMIT DATE: 07/27/2020 CHIEF COMPLAINT: Fall and leg pain. HISTORY OF PRESENT ILLNESS: A 64-year-old white female, poorly controlled diabetic, who has severe degenerative arthritis of her left hip and had some kind of a twisting injury at home about 2 days prior to admission. She has had increasing pain since that time, which has not been well localized, but she does recall feeling and hearing a "snapping sound" when she fell. X-rays were done in the ER of the pelvis and hip, but not of the knee and below the knee and she has an equal amount of pain in that area. PAST MEDICAL HISTORY: ALLERGIES: LISTED TO MULTIPLE DRUGS. SHE IS INTOLERANT OF JANUVIA AND TRULICITY for diabetes, is now taking a low dose Lantus at home. SOCIAL HISTORY: She is single, lives alone, 2 hours away. Not employed currently. Nondrinker, nonsmoker. FAMILY HISTORY: Unremarkable. REVIEW OF SYSTEMS: No other complaints. OBJECTIVE: ENT: All within normal limits. NECK: No masses, nodes or bruits. LUNGS: Clear. CARDIOVASCULAR: Regular rate. No murmur. ABDOMEN: Obese, soft, benign and nontender. EXTREMITIES: Left leg is shortened and externally rotated. She is tender around the left knee and more tender over the proximal tibia with some swelling there, but no obvious ecchymosis. I did not test range of motion of the knee as it was too painful to even start to move. She has good pedal pulses bilaterally. NEUROLOGIC: Physiologic and nonfocal. ASSESSMENT: Twisting injury to the left leg. I suspect she may have a proximal tibial fracture. She has severe degenerative joint disease of the left hip and poorly controlled diabetes, chronic edema is preexisting conditions. PLAN: A1c, knee and tibial x-rays and further evaluation as indicated. If no bony injury, will need rehab as she lives alone, 2 hours away. MICHELE MONROY MD DR: CHARLEE/kervin JOB#: [id number] / [id number]
--- NOTE | 2020-07-27 09:40 | RAD ---
PROCEDURE: XR LT TIBIA + FIBULA, XR KNEE _3 VIEWS_LT STUDY DATE: 07/27/2020 CLINICAL INDICATION / HISTORY: Reason: injury, PAIN TO ENTIRE LEFT LEG / Spl. Instructions: / Histor y: . TECHNIQUE: AP, lateral, and oblique views of the left knee. COMPARISON: None FINDINGS: The osseous structures are demineralized but intact. The articular surfaces are smooth. J oint space is narrowed medially and there is osteophytic spurring on the medial tibial plateau with m ild subchondral sclerosis. Osteophytic spurring is also evident in the lateral femoral condyle and th e articular surface of the patella in the superior and inferior poles. No intra-articular loose nicole s. The alignment is within normal limits. The soft tissues are unremarkable. No obvious joint effus ion. No radio-opaque foreign bodies are identified. IMPRESSION: Tricompartmental left knee degenerative changes. No fracture or malalignment noted. PROCEDURE: XR LT TIBIA + FIBULA, XR KNEE _3 VIEWS_LT STUDY DATE: 07/27/2020 CLINICAL INDICATION / HISTORY: Reason: injury, PAIN TO ENTIRE LEFT LEG / Spl. Instructions: / Histor y: . TECHNIQUE: AP and lateral views of the left tibia and fibula. COMPARISON: None FINDINGS: AP and lateral views of the left tibia and fibula show no acute fracture, dislocation or donell ne destruction. The soft tissues show mild subcutaneous edema.. IMPRESSION: Subcutaneous edema in the soft tissues of the left leg. No acute osseous abnormality Electronically signed by: Lacie Shaw MD (07/27/2020 9:37 AM) [id number]
--- NOTE | 2020-07-27 09:40 | NUR ---
SW following. Discussed with RN, pt from home alone, room air, ada diet. Pt had xrays this morning, Ortho consulted. No PT/OT or COVID ordered yet. SW will continue to follow.
[2020-07-27 11:00] VITALS: BP 121/48
[2020-07-27] MEDS: POTASSIUM CHLORIDE 10 MEQ TABLET.ER. PO SCH ×2 (11:09→17:23)
[2020-07-27] MEDS: FUROSEMIDE 40 MG TABLET. PO SCH (11:09)
[2020-07-27] MEDS: INSULIN GLARGINE SYRINGE. SQ SCH (11:16)
[2020-07-27 15:00] VITALS: BP 143/69
[2020-07-27 19:00] VITALS: BP 134/80
[2020-07-27 23:13] VITALS: BP 123/58
[2020-07-28 00:09] LABS: HEMOGLOBIN A1C 8.3 % (4.8-5.6)
[2020-07-28 03:05] VITALS: BP 126/47
[2020-07-28 07:00] VITALS: BP 144/86
--- NOTE | 2020-07-28 09:41 | PDOC ---
Provider Note Date of Service: DATE: 07/28/20 TIME: 09:40 Provider Note [id number] Justifications for Admission Other Justification MICHELE MONROY MD Jul 28, 2020 09:41
[2020-07-28] MEDS: POTASSIUM CHLORIDE 10 MEQ TABLET.ER. PO SCH (09:47)
[2020-07-28] MEDS: FUROSEMIDE 40 MG TABLET. PO SCH (09:47)
--- NOTE | 2020-07-28 09:49 | DS ---
DATE OF DISCHARGE: 07/28/2020 HOSPITAL SUMMARY: The patient came in after a fall with severe left leg pain. She has known degenerative joint disease with left hip very severe and x-ray showed severe arthritis in her left knee as well with no fractures in the entire left leg or pelvis. Hemoglobin A1c was 8.3. Blood test unremarkable. She is feeling better and able to bear some weight and is comfortable to be followed as an outpatient. FINAL DIAGNOSES: 1. Left leg strain. 2. Type 2 insulin-dependent diabetes mellitus. 3. Severe degenerative joint disease of the left knee and the left hip. OPERATIONS, PROCEDURES, COMPLICATIONS: None. CONSULTATIONS: Dr. Ocampo. DISPOSITION: Continue home meds including the addition of Lantus 20 units, which she has not started yet and will start soon to treat her diabetes. She will consider hip replacement in the near future as her diabetes is better controlled now and she should be able to heal. Rest of meds remain the same. MICHELE MONROY MD DR: CHARLEE/nts JOB#: [id number] / [id number]
[2020-07-28] MEDS: INSULIN GLARGINE SYRINGE. SQ SCH (09:52)
--- NOTE | 2020-07-28 10:57 | NUR ---
pt is discharged home with self care at this time via wheelchair via LILIANA Urbano. pt is in stable condition. pt had no IV to remove. pt has all belongings with her. pt received discharge instructions and stated she had no further questions for me.
--- NOTE | 2020-07-29 21:03 | CONS ---
DATE OF CONSULTATION: 07/26/2020 ORTHOPEDIC CONSULTATION REQUESTING PHYSICIAN: ____ from [facility]. REASON FOR CONSULTATION: Left hip pain and inability to ambulate. HISTORY OF PRESENT ILLNESS: The patient is a 64-year-old female who has been having difficulty getting around for some time. She has been having difficulty moving her left hip with pain and grinding, now difficulty of severe left hip pain, inability to bear weight and was concerned that she may have fractured the hip that it was so painful. She primarily has pain in the left groin area, also complains of pain in the left knee or at least down to the knee. She has been compensating ambulating using a walker with a seat on it and has been sitting on that and pushing her legs out to roll herself along to get around her house and states that she really cannot put weight on the left leg because of the severe pain. She denies any traumatic episode. PAST MEDICAL HISTORY: Significant for insulin-dependent diabetes that is poorly controlled and also has hypertension. PAST SURGICAL HISTORY: She denies any previous surgical history. SOCIAL HISTORY: She does smoke cigarettes, denies alcohol or drug use. ALLERGIES: INCLUDE MORPHINE AND TRAMADOL. MEDICATIONS: List is reviewed. REVIEW OF SYSTEMS: Again, denies any trauma, but severe left lower extremity pain. Diabetes, which is reportedly poorly controlled and Dr. Henriquez had previously told her that her diabetes needs to be better managed prior to surgery consideration. She just due to her difficulty getting around also has a home hospital bed. Denies any focal weakness, numbness, tingling, chest pain, shortness of breath, fever, chills or other constitutional symptoms, otherwise negative review of systems beyond what is in her medical history. PHYSICAL EXAMINATION: EXTREMITIES: She has significant crepitus with any movement of the left hip, does radiate pain down toward the left knee. Left knee is painful, particularly along the medial joint line and left knee has slight varus. No gross ligamentous instability. Leg lengths are equal. Negative straight leg raise sign present. She has some lower extremity edema bilaterally, but no ankle pain other than just diffuse discomfort. Otherwise normal examination of the contralateral right hip, knee and ankle. Overall intact motor function, distal pulses, sensation, reflexes, skin in both lower extremities throughout. IMPRESSION: Recent exacerbation, atraumatic of left hip and knee pain. TREATMENT PLAN: I went over with her that she has severe degradation with [id number] in her left hip, often that some of this left hip pain can be referred to her left knee. She does have some arthritic changes in the left knee as well and eventually would really probably benefit from a total hip arthroplasty, but her current expectation of getting her hip done on this hospital admission is unrealistic for several reasons. She is poorly controlled in terms of her diabetes and that along with her smoking history really severely increased her risk for infection, wound complications or other problems associated with the surgery. I told her that we would really have to make planning to get those issues under control and that even her body mass index is above the typical threshold of 40 and that I would really prefer her to make some progress to weight loss prior to making plans for surgery, we could work through those issues with Dr. Henriquez in the interim and I think the weight loss would probably help with the diabetes, among other issues as well. A followup can be in the clinic after some of these issues are better addressed. BENJY GU MD DR: POLO/kervin JOB#: [id number] / [id number]
[2020-08-31] MEDS ORDERED: POTA20TA4 PO (08:19)
[2020-08-31] MEDS ORDERED: CLIN300C9 PO (08:19)
[2020-08-31] MEDS ORDERED: FURO40TA4 PO (08:19)
[2020-08-31] MEDS ORDERED: INSU100V8 SQ (08:19)
== END 2020-07-28 10:59 | disposition home or self-care (01) | DRG 563 ==
LOC: ER 18:51 → 4 NORTH 22:28
PROVIDERS: ADMIT Family Medicine; ATTEND Family Medicine
DX: S86.912A Strain of unspecified muscle(s) and tendon(s) at lower leg level, left leg, initial encounter (principal); E11.65 Type 2 diabetes mellitus with hyperglycemia; M16.0 Bilateral primary osteoarthritis of hip; F17.210 Nicotine dependence, cigarettes, uncomplicated; I10 Essential (primary) hypertension; M17.12 Unilateral primary osteoarthritis, left knee; X50.1XXA Overexertion from prolonged static or awkward postures, initial encounter; Z79.4 Long term (current) use of insulin; E66.9 Obesity, unspecified; W18.39XA Other fall on same level, initial encounter; Y93.89 Activity, other specified; Y92.89 Other specified places as the place of occurrence of the external cause; Y99.8 Other external cause status; Z88.8 Allergy status to other drugs, medicaments and biological substances; Z60.2 Problems related to living alone
CPT/HCPCS: 36415; 72192; 73502; 73552; 73562; 73590; 80053; 82962; 83036; 85025; 85610; 85730; 96374; 96375; 96376; 99285; J1170; J1815; J1885; G0378

== ENCOUNTER 2020-08-28 17:13 | Inpatient (IN) | payer MEDICARE ==
[~2020-08-28] VITALS: Ht 177.8 cm; Wt 129.2 kg
[2020-08-28] MEDS ORDERED: fentaNYL PF VIAL 100 MCG/2 ML VIAL IVP ONE (17:45)
--- NOTE | 2020-08-28 17:55 | PHYS DOC ---
Past Medical History Past Medical History: Diabetes-Type II, Hypertension, Other Additional Past Medical Histor: neuropathy and osteoarthritis Past Surgical History: No Surgical History Smoking Status: Former Smoker Alcohol Use: None Drug Use: None General Adult EDM: Chief Complaint: CELLULITIS HPI: HPI: Patient is a 64 year old female who presents with here after driving herself here from [facility] she had gone to the hospital there on August 23 due to left leg edema and pain that had been going on for 2 days prior to that. She does have chronic edema in by her bilateral legs but she states this it has increased and there has been increased redness and pain to the left leg. Patient denies any injury here but when looking back at the paperwork sent over by that ER it states that she thinks that she may have twisted her left knee or left ankle 2 days prior to arrival to that ER and the ice and snow try to get out of a car. She did not fall at that time. Upon her arrival here she states that Dr. Monroy sent her here for admission and that the hospital in [place] had put her on clindamycin that she been taking for cellulitis and they did prescribe her furosemide but she has not yet picked that up. She has a insulin-dependent diabetic and has hypertension, neuropathy and osteoarthritis. She does take an aspirin but no other blood thinners. Patient states that because of the increased swelling she has limited mobility and has had limited mobility for at least the last couple of months due to all the swelling and the pain. Patient at this time denies fever, body aches, chills, urinary symptoms, chest pain, shortness of air, abdominal pain, nausea vomiting or diarrhea, blood in her stool or urine or any vomiting, travel risk or ill contacts. Patient did come with paperwork from the [place] emergency department with chest x-ray and ultrasound of her legs of which both showed no acute findings. Patient currently rates her pain a 8 out of 10 states that sharp and shooting pains in that left lower leg mainly. Review of Systems: Review of Systems: Constitutional: Denies fever or chills. [] Eyes: Denies change in visual acuity. [] HENT: Denies nasal congestion or sore throat. [] Respiratory: Denies cough or shortness of breath. [] Cardiovascular: Denies chest pain or + bilateral lower edema 4+ nonpitting. [] GI: Denies abdominal pain, nausea, vomiting, bloody stools or diarrhea. [] : Denies dysuria. [] Musculoskeletal: Denies back pain or joint pain. + Bilateral lower leg pain but worsening on the left side. [] Integument: Denies rash. + Increased redness to her legs [] Neurologic: Denies headache, focal weakness or sensory changes. [] Endocrine: Denies polyuria or polydipsia. [] Lymphatic: Denies swollen glands. [] Psychiatric: Denies depression or anxiety. [] Heart Score: Risk Factors: Risk Factors: DM, Current or recent (<one month) smoker, HTN, HLP, family history of CAD, obesity. Risk Scores: Score 0 - 3: 2.5% MACE over next 6 weeks - Discharge Home Score 4 - 6: 20.3% MACE over next 6 weeks - Admit for Clinical Observation Score 7 - 10: 72.7% MACE over next 6 weeks - Early Invasive Strategies Current Medications: Current Medications Medications (Trade) Dose Ordered Sig/[facility] Start Time Stop Time Status Last Admin Dose Admin Fentanyl Citrate (Fentanyl 2ml Vial) 50 mcg 1X ONCE 08/28/20 17:45 08/28/20 17:46 Allergies: Allergies: Allergies Coded Allergies Type Severity Reaction Last Updated Verified dulaglutide Allergy Intermediate 07/27/20 Yes sitagliptin Allergy Intermediate 07/27/20 Yes morphine Adverse Reaction Intermediate Rash,Nausea and Confusion 07/27/20 Yes Physical Exam: PE: Constitutional: Well developed, well nourished, no acute distress, non-toxic appearance. [] HENT: Normocephalic, atraumatic, bilateral external ears normal, oropharynx moist, no oral exudates, nose normal. [] Eyes: PERRLA, EOMI, conjunctiva normal, no discharge. [] Neck: Normal range of motion, no tenderness, supple, no stridor. [] Cardiovascular:Heart rate regular rhythm, no murmur [] Lungs & Thorax: Bilateral breath sounds clear to auscultation [] Abdomen: Bowel sounds normal, soft, no tenderness, no masses, no pulsatile masses. [] Skin: Warm, dry, no erythema, no rash. Bilateral lower leg pinkness to the calf area. [] Back: No tenderness, no CVA tenderness. [] Extremities: Leg tenderness, no cyanosis, no clubbing, ROM intact, 4+ bilaterally edema. [] Neurologic: Alert and oriented X 3, normal motor function, normal sensory function, no focal deficits noted. [] Psychologic: Affect normal, judgement normal, mood normal. [] EKG: EK and read by Dr Bermudez as Sinus Rhythm and no STEMI[] Radiology/Procedures: Radiology/Procedures: [] Impression: [facility] [address] [place] [address] IMAGING REPORT Signed PATIENT: BESSIE SHOEMAKER ACCOUNT: [id number] : 1955 LOCATION: ER AGE: 64 SEX: F EXAM STATUS: REG ER ORD. PHYSICIAN: KVNG ROBERTS APRN REASON: SEVERE SWELLING PROCEDURE: PORTABLE CHEST 1V INDICATION: Reason: SEVERE SWELLING / Spl. Instructions: / History: COMPARISON: May 03, 2020 FINDINGS: Single view of chest obtained. Degenerative changes of the spine and shoulders. Old left clavicle fracture with callus. Some limitation at left lung base secondary to overlying cardiac silhouette obscuring but no definite focal consolidation elsewhere in the lungs. IMPRESSION: * No focal airspace consolidation or edema. Electronically signed by: Jaqui Monroy MD (08/28/2020 6:24 PM) [id number] DICTATED and SIGNED BY: JAQUI MONROY MD DATE: 08/28/20 [id number] 0 Course & Med Decision Making: Course & Med Decision Making Pertinent Labs and Imaging studies reviewed. (See chart for details) See HPI. Patient has 4+ nonpitting edema bilateral lower legs. That she does have slight pinkness to the posterior sides of her legs by do not see any no redness or drainage from her legs. She is afebrile. Her legs are very tender b ilaterally from about the knee down with palpation. Skin is pink warm and dry. Cap refills less than 2 seconds. Due to the amount of swelling a pedal pulse cannot be felt. She is alert and oriented x4. Speaks in full complete sentences. She is not ambulatory. Patient was refusing the chief diversity officer upon arrival but was told that we need to keep an eye on her out in the nursing station and then she states that she would be okay with it. I did have the CD that the patient brought with her imaging uploaded by our radiology. I was able to look it up and there is a chest x-ray and then the x-rays of her left lower extremity but there is no images from the ultrasound. But in the documentation that was sent over from the ER he did say that there was no DVT seen. I have spoken to Dr. Angeles concerning this patient she states to go ahead and admit the patient give her 40 mg of Lasix IV and to go ahead and give her dose of clindamycin. She states she will come and see her in the morning. [] Dragon Disclaimer: Dragon Disclaimer: This electronic medical record was generated, in whole or in part, using a voice recognition dictation system. Departure Departure Impression: Primary Impression: Cellulitis Qualified Codes: L03.119 - Cellulitis of unspecified part of limb Additional Impression: Edema Qualified Codes: R60.9 - Edema, unspecified Disposition: 09 ADMITTED INPT THIS HOSP Admitting Physician: Aicha Angeles Condition: STABLE Referrals: MICHELE MONROY MD (PCP) KVNG ROBERTS HOTEL MAINTENANCE ENGINEER Aug 28, 2020 17:55
[2020-08-28 17:57] LABS: BASO # 0.1 x10^3/uL (0.0-0.2); BASO % 1 % (0-3); EOS # 0.2 x10^3/uL (0.0-0.7); EOS % 2 % (0-3); HEMATOCRIT 31.9 % (36.0-47.0); HEMOGLOBIN 10.6 g/dL (12.0-15.5); LYMPH # 1.6 x10^3/uL (1.0-4.8); LYMPH % 25 % (24-48); MEAN CORPUSCULAR HEMOGLOBIN 28 pg (25-35); MEAN CORPUSCULAR HGB CONC 33 g/dL (31-37); MEAN CORPUSCULAR VOLUME 86 fL (79-100); MONO # 0.5 x10^3/uL (0.0-1.1); MONO % 8 % (0-9); NEUT # 4.2 x10^3/uL (1.8-7.7); NEUT % 65 % (31-73); PLATELET COUNT 198 x10^3/uL (140-400); RED BLOOD COUNT 3.72 x10^6/uL (3.50-5.40); RED CELL DISTRIBUTION WIDTH 13.9 % (11.5-14.5); WHITE BLOOD COUNT 6.5 x10^3/uL (4.0-11.0)
[2020-08-28 18:12] LABS: CALCIUM 8.6 mg/dL (8.5-10.1); CREATININE 0.8 mg/dL (0.6-1.0); GFR 71.8; POTASSIUM 4.7 mmol/L (3.5-5.1)
[2020-08-28 18:24] LABS: ALBUMIN 3.3 g/dL (3.4-5.0); TOTAL BILIRUBIN 0.2 mg/dL (0.2-1.0); TOTAL PROTEIN 6.7 g/dL (6.4-8.2)
--- NOTE | 2020-08-28 18:27 | RAD ---
INDICATION: Reason: SEVERE SWELLING / Spl. Instructions: / History: COMPARISON: May 03, 2020 FINDINGS: Single view of chest obtained. Degenerative changes of the spine and shoulders. Old left clavicle fracture with callus. Some limitat ion at left lung base secondary to overlying cardiac silhouette obscuring but no definite focal conso lidation elsewhere in the lungs. IMPRESSION: * No focal airspace consolidation or edema. Electronically signed by: Jose Henriquez MD (08/28/2020 6:24 PM) [id number]
[2020-08-28] MEDS ORDERED: CLINDAMYCIN 600MG PREMIX 50 ML IV ONE (19:00)
[2020-08-28] MEDS ORDERED: FUROSEMIDE 40 MG/4 ML VIAL. IVP ONE (19:00)
--- NOTE | 2020-08-28 19:04 | EKG ---
[facility] [address] [place] [address] Test Date: 2020-08-28 Test Time: 18:28:51 Pat Name: BESSIE SHOEMAKER Department: Room: Gender: F Organ Grinder: : 1955 Requested By: KVNG ROBERTS Order Number: [id number] Reading MD: Measurements Intervals [place] Rate: 87 P: 59 [place]: 148 QRS: 46 QRSD: 86 T: 74 QT: 348 QTc: 419 Interpretive Statements SINUS RHYTHM NORMAL ECG RI6.02 No previous ECG available for comparison
[2020-08-28] MEDS ORDERED: fentaNYL PF VIAL 100 MCG/2 ML VIAL IV PRN (19:15)
[2020-08-28] MEDS ORDERED: ACETAMINOPHEN 325 MG TABLET. PO PRN (19:15)
[2020-08-28 21:52] VITALS: BP 139/61
[2020-08-28] MEDS ORDERED: LISI10TA16 PO (22:39)
[2020-08-28] MEDS ORDERED: INSU100I13 SQ (22:39)
[2020-08-28] MEDS: INSULIN GLARGINE SYRINGE. SQ SCH (23:06)
[2020-08-28] MEDS ORDERED: CLIN300C9 PO (23:10)
[2020-08-28] MEDS ORDERED: FURO40TA4 PO (23:10)
[2020-08-28] MEDS: traMADol 50 MG TABLET PO PRN (23:39)
[2020-08-29] MEDS: CYCLOBENZAPRINE 10 MG TABLET. PO PRN ×3 (00:25→21:36)
[2020-08-29 03:00] VITALS: BP 138/62
[2020-08-29 07:00] VITALS: BP 135/68
--- NOTE | 2020-08-29 08:09 | PDOC1 ---
H & P. DATE OF SERVICE: DATE: 08/29/20 TIME: 07:59 HPI: Ms. Burgess is a 64-year-old female with a past medical history of type 2 diabetes with chronic kidney disease stage II, hypertension, diabetic polyneuropathy, lymphedema bilateral lower extremities, history of TIA, who presented to the emergency room yesterday for a weeklong history of increasing lower extremity edema. She was evaluated in the emergency room in [place] about 6 days ago for this and was diagnosed with cellulitis and given a prescription for clindamycin, which she only started within the last day or 2. An ultrasound at that time was reportedly negative for DVT. Of note, she has called the office multiple times over the last few days and she has been encouraged to go to the emergency room given that she is having significant pain in the lower extremities. She refused to call an ambulance to help her as she has difficulty with mobility. She then drove herself to the emergency room here at [place] yesterday. In the emergency room, her labs were remarkable only for mild normocytic anemia. A chest x-ray was unremarkable. Her blood pressure was moderately elevated, however this has improved overnight. She was given IV Lasix for significant lower extremity edema and admitted for further evaluation and management. ROS: Constitutional: Denies fever, fatigue, chills HEENT: Denies sore throat, vision changes Cardio: Denies chest pain, dyspnea with exertion, syncope, palpitations, edema Pulmonary: Denies shortness of breath, cough, wheezing GI: Denies nausea, vomiting, diarrhea, constipation : Denies dysuria, frequency, urgency, incontinence MSK: Significant b/l LE edema and pain Skin: Denies new lesions, rashes Neuro: Admits generalized weakness; denies paresthesias PMH: As above FAMILY HX: Father had diabetes. SOCIAL HX: Non-smoker, no significant alcohol or drug use. SURGICAL HX: Noncontributory MEDS: Reviewed and reconciled ALLERGIES: Reviewed PE: Alert, oriented, no acute distress EOMI, sclera non-icteric Neck supple RRR, no murmur CTAB, no wheezes, crackles or rhonchi Soft, NT, ND, normal bowel sounds, no rebound, guarding. 4+ pitting edema b/l LEs, no cyanosis. Normal capillary refill. Erythema of the posterior LLE with some tenderness to palpation and warmth Calm, cooperative, mood/affect within normal limits ASSESSMENT & PLAN: Cellulitis of posterior LLE Lymphedema bilateral extremities Type 2 diabetes Hypertension Debility, fall risk Chronic kidney disease stage II without acute kidney injury Diuresis, K+ replacement as needed Repeat bmp IV abx PT OT eval Patient has difficulty caring for self at home, would likely benefit from SNU at discharge. Justifications for Admission Other Justification TRUSTFranklyn,INEZ Falcon MD Aug 29, 2020 08:09
[2020-08-29] MEDS: CLINDAMYCIN 600MG PREMIX 50 ML IV SCH ×3 (09:29→21:36)
[2020-08-29] MEDS: traMADol 50 MG TABLET PO PRN ×3 (09:30→21:36)
[2020-08-29] MEDS: POTASSIUM CHLORIDE 20 MEQ TABLET.ER. PO SCH (09:30)
[2020-08-29] MEDS: FUROSEMIDE 40 MG/4 ML VIAL. IVP SCH ×2 (09:30→13:36)
[2020-08-29 09:57] LABS: CALCIUM 8.4 mg/dL (8.5-10.1)
[2020-08-29 09:58] LABS: CREATININE 0.8 mg/dL (0.6-1.0); GFR 71.8; POTASSIUM 4.3 mmol/L (3.5-5.1)
--- NOTE | 2020-08-29 10:31 | NUR ---
SW following. Discussed with RN, pt from home, room air, ada diet. PT/OT ordered. Pt is from [place]. Per Dr. Angeles's note, pt may benefit from SNF. THEODORE requested RN do a COVID test in anticipation of possible SNF placement. SW will continue to follow. Addendum: 08/29/20 at 1511 by CONSTANTINO HUNTER SW PT/OT recommending SNF. SW met with pt (no isolation precautions at the time), pt stated she would consider going to SNF. SW informed pt a facility in the town she is from does take her insurance ([facility] ph: [phone] fax: [phone]). Pt considering and will have a decision for SW tomorrow morning (08/30/20). RN obtaining COVID swab this afternoon. SW will continue to follow.
[2020-08-29 11:00] VITALS: BP 114/57
[2020-08-29 15:00] VITALS: BP 163/78
[2020-08-29 19:00] VITALS: BP 127/72
[2020-08-29] MEDS ORDERED: INSULIN GLARGINE HUM REC ANLOG 32 UNIT SQ SCH (21:00)
[2020-08-29] MEDS: LACTOBACILLUS RHAMNOSUS GG 1 CAPSULE. PO SCH (21:36)
[2020-08-29] MEDS: INSULIN GLARGINE SYRINGE. SQ SCH (21:37)
[2020-08-29 23:00] VITALS: BP 114/61
[2020-08-30 02:53] VITALS: BP 115/60
[2020-08-30] MEDS: CLINDAMYCIN 600MG PREMIX 50 ML IV SCH ×3 (05:34→21:21)
[2020-08-30 06:12] LABS: CALCIUM 8.4 mg/dL (8.5-10.1); CREATININE 0.8 mg/dL (0.6-1.0); GFR 71.8; POTASSIUM 4.5 mmol/L (3.5-5.1)
[2020-08-30 07:00] VITALS: BP 140/74
--- NOTE | 2020-08-30 07:50 | PDOC ---
SUBJECTIVE Subjective Has had good diuresis over last 24 hours. She is having less pain in legs. Was initially agreeable to going to [place] as recommended, but now wants to go with home health when discharging. OBJECTIVE Objective Reviewed. Vital Signs Vital Signs Date Time Temp Pulse Resp B/P (MAP) Pulse Ox O2 Delivery O2 Flow Rate FiO2 08/30/20 02:53 97.8 79 19 115/60 (78) 96 Room Air 97.8 08/29/20 23:00 98.1 75 18 114/61 (78) 94 Room Air 98.1 08/29/20 22:45 97 Room Air 08/29/20 21:36 97 Room Air 08/29/20 19:30 Room Air 08/29/20 19:00 98.2 75 18 127/72 (90) 97 Room Air 98.2 08/29/20 15:00 97.7 83 20 163/78 (106) 97 Room Air 97.7 08/29/20 11:00 97.8 80 18 114/57 (76) 94 Room Air 97.8 08/29/20 08:00 Room Air I & O Intake and Output 08/30/20 07:00 Intake Total 300 ml Output Total 4750 ml Balance -4450 ml Intake Oral 300 ml Output Urine Total 4750 ml # Voids 3 PHYSICAL EXAM Physical Exam Alert, oriented, no acute distress EOMI, sclera non-icteric Neck supple Normal rate Nonlabored respirations Improving lymphedema in b/l LEs, no cyanosis. Normal capillary refill. Improving erythema/warmth of the posterior LLE with improving tenderness to palpation Calm, cooperative, mood/affect within normal limits ASSESSMENT/PLAN Assessment/Plan Cellulitis of posterior LLE Lymphedema bilateral extremities Type 2 diabetes Hypertension Debility, fall risk Chronic kidney disease stage II without acute kidney injury Diuresis, K+ replacement as needed Follow daily bmp IV abx Continue PT OT, lymphedema management Recommended SNU [place]. Pt was initially willing but now wants only . COMMENT Lab Laboratory Tests Test 08/29/20 09:28 08/29/20 11:35 08/29/20 16:35 08/29/20 19:36 Sodium Level 137 mmol/L (136-145) Potassium Level 4.3 mmol/L (3.5-5.1) Chloride Level 103 mmol/L (98-107) Carbon Dioxide Level 32 mmol/L (21-32) Anion Gap 2 (6-14) Blood Urea Nitrogen 24 mg/dL (7-20) Creatinine 0.8 mg/dL (0.6-1.0) Estimated GFR (Cockcroft-Gault) 71.8 Glucose Level 171 mg/dL (70-99) Calcium Level 8.4 mg/dL (8.5-10.1) Glucose (Fingerstick) 153 mg/dL (70-99) 153 mg/dL (70-99) 205 mg/dL (70-99) Test 08/30/20 05:12 08/30/20 07:22 Sodium Level 139 mmol/L (136-145) Potassium Level 4.5 mmol/L (3.5-5.1) Chloride Level 104 mmol/L (98-107) Carbon Dioxide Level 32 mmol/L (21-32) Anion Gap 3 (6-14) Blood Urea Nitrogen 26 mg/dL (7-20) Creatinine 0.8 mg/dL (0.6-1.0) Estimated GFR (Cockcroft-Gault) 71.8 Glucose Level 103 mg/dL (70-99) Calcium Level 8.4 mg/dL (8.5-10.1) Glucose (Fingerstick) 164 mg/dL (70-99) Justifications for Admission Other Justification INEZ BERUMEN MD Aug 30, 2020 07:50
[2020-08-30] MEDS: FUROSEMIDE 40 MG/4 ML VIAL. IVP SCH ×2 (08:42→14:39)
[2020-08-30] MEDS: POTASSIUM CHLORIDE 20 MEQ TABLET.ER. PO SCH (08:42)
[2020-08-30] MEDS: LACTOBACILLUS RHAMNOSUS GG 1 CAPSULE. PO SCH ×2 (08:42→21:21)
--- NOTE | 2020-08-30 09:51 | NUR ---
Dr. Angeles was paged and notified about patient positive blood culture of gram + cocci in chain suggestive of strep in 1 of 2 bottles 1 set draw. Ordered received to redraw another blood culture.
--- NOTE | 2020-08-30 10:58 | NUR ---
SS following up with discharge planning. SS reviewed pt chart and discussed with pt RN. Pt is from home and is currently on room air. Pt on IV Clindamycin. PT/OT recommended long-term unit. Dr. Angeles met with pt this morning and now pt declining long-term unit stating that she will discharge to home when medically ready. Anticipating discharge to home tomorrow. Home Healthcare recommended if not going to long-term unit. SS will continue to follow for discharge planning.
[2020-08-30 11:00] VITALS: BP 147/63
[2020-08-30] MEDS: traMADol 50 MG TABLET PO PRN ×2 (12:17→21:21)
[2020-08-30 15:00] VITALS: BP 155/71
[2020-08-30 19:00] VITALS: BP 127/58
[2020-08-30] MEDS ORDERED: INSULIN GLARGINE SYRINGE. SQ SCH (21:00)
[2020-08-30] MEDS: CYCLOBENZAPRINE 10 MG TABLET. PO PRN (21:21)
[2020-08-30 23:00] VITALS: BP 114/62
[2020-08-31 03:00] VITALS: BP 117/59
[2020-08-31] MEDS: CLINDAMYCIN 600MG PREMIX 50 ML IV SCH (06:35)
[2020-08-31 07:00] VITALS: BP 130/68
[2020-08-31 07:25] LABS: CALCIUM 8.6 mg/dL (8.5-10.1); CREATININE 0.9 mg/dL (0.6-1.0); GFR 62.6; POTASSIUM 4.4 mmol/L (3.5-5.1)
[2020-08-31] MEDS ORDERED: FURO40TA4 PO (08:19)
[2020-08-31] MEDS ORDERED: POTA20TA4 PO (08:19)
[2020-08-31] MEDS ORDERED: INSU100V8 SQ (08:19)
[2020-08-31] MEDS ORDERED: CLIN300C9 PO (08:19)
--- NOTE | 2020-08-31 08:20 | SNU/HH DC ---
DISCHARGE WITH HOME HEALTH DISCHARGE INFORMATION: Discharge Date: Aug 31, 2020 Final Diagnosis: Problems Medical Problems: (1) Cellulitis Status: Acute (2) Edema Status: Acute Condition on Discharge: Stable CODE STATUS: Code Status: Full HOME HEALTH: Face to Face: I certify this patient is under my care and that I, or a nurse practitioner or physician's chef's assistant working with me, had a face to face encounter that meets the physician face to face encounter requirements with this patient on []. Medical Complications: DJD, DM, Falls, HTN RN For Eval/Treatment: Yes Physical Therapy For: Evalulation/Treatment Occupational Therapy For: Evaluation/Treatment Home Health Aide For: Self-care Pt Meets Homebound Status: Poor coordination w/ amb., Unsteady balance w/ amb,, Extreme weakness w/ amb. POST DISCHARGE ORDERS: Activity Instructions for Disc: Activity as tolerated CHECKS AFTER DISCHARGE: Checks after discharge: Check blood press - daily, Check blood sugar, ac/hs, Weigh Yourself Daily CERTIFICATION STATEMENT: Certification Statement: Certification Statement: Based on the above finding, I certify that this patient is confined to the home and needs intermittent fpc care, physical therapy and/or speech therapy, or continues to need occupational therapy.~ This patient is under my care, and I have initiated the establishment of the plan of care.~ This patient will be followed by myself or a community physician who will periodically review the plan of care. Home Meds Active Scripts Insulin Glargine,Hum.rec.anlog (LANTUS) 100 Unit/1 Ml Vial, 34 UNIT SQ HS for diabetes for 30 Days, #5 EACH 1 Refill Prov:INEZ BERUMEN MD 08/31/20 Potassium Chloride (KLOR-CON M20) 20 Meq Tab.er.prt, 20 MEQ PO DAILY08 PRN for leg swelling for 30 Days, #30 TAB.SR 1 Refill take with furosemide Prov:INEZ BERUMEN MD 08/31/20 Furosemide (FUROSEMIDE) 40 Mg Tablet, 40 MG PO DAILY for EDEMA for 30 Days, #30 TAB 1 Refill Prov:INEZ BERUMEN MD 08/31/20 Clindamycin Hcl (CLINDAMYCIN HCL) 300 Mg Capsule, 1 CAP PO TID for CELLULITIS for 3 Days, #9 CAP 0 Refills Prov:INEZ BERUMEN MD 08/31/20 Reported Medications Lisinopril (LISINOPRIL) 10 Mg Tablet, 10 MG PO DAILY for FOR HYPERTENSION, #30 TAB 0 Refills 08/28/20 Cyclobenzaprine Hcl (CYCLOBENZAPRINE HCL) 10 Mg Tablet, 1 TAB PO PRN BID PRN for muscle spasm 05/04/20 Tramadol Hcl (TRAMADOL HCL) 50 Mg Tablet, 1 TAB PO TID PRN for PAIN 05/04/20 Discontinued Reported Medications Insulin Glargine,Hum.rec.anlog (LANTUS SOLOSTAR) 100 Unit/1 Ml Insuln.pen, 32 UNIT SQ HS for DM, SYR 08/28/20 INEZ BERUMEN MD Aug 31, 2020 08:20
--- NOTE | 2020-08-31 08:27 | PDOC3 ---
Discharge Summary Date of Admission: Aug 29, 2020 Date of Discharge: Aug 31, 2020 Follow-Up: Other (1-[address] Henriquez) Admitting Diagnosis comment: Cellulitis Lymphedema Inability to care for herself FINAL DIAGNOSIS Problems Medical Problems: (1) Cellulitis Status: Acute (2) Edema Status: Acute Brief Hospital Course Ms. Burgess is a 64-year-old female with a past medical history of type 2 diabetes with chronic kidney disease stage II, hypertension, diabetic polyneuropathy, lymphedema bilateral lower extremities, history of TIA, who presented to the emergency room increasing lower extremity edema, cellulitis and inability to care for herself. Her labs were remarkable only for mild normocytic anemia. She was diuresed with IV Lasix and treated with clindamycin for cellulitis of the LLE. She has diuresed about 9L of excess fluid with symptomatic improvement of her pain and mobility. She was evaluated by physical therapy and Occupational Therapy and recommended to discharge to a group home facility, however she refused this in favor of home health care. She will continue Lasix 40 mg daily with potassium replacement. She will complete 3 more days of clindamycin for her cellulitis. Of note 1 out of 2 blood cultures taken on admission was positive for strep, with further evaluation still pending. This is likely a skin contaminant, however repeat blood cultures were performed yesterday and will be monitored with further antibiotic therapy if necessary. She will follow up in our clinic in approximately 1 to 2 weeks. CONDITION AT DISCHARGE: Improved Discharge Medications Active Scripts Active Lantus (Insulin Glargine,Hum.rec.anlog) 100 Unit/1 Ml Vial 34 Unit SQ HS 30 Days Klor-Con M20 (Potassium Chloride) 20 Meq Tab.er.prt 20 Meq PO DAILY08 PRN 30 Days take with furosemide Furosemide 40 Mg Tablet 40 Mg PO DAILY 30 Days Clindamycin Hcl 300 Mg Capsule 1 Cap PO TID 3 Days Reported Lisinopril 10 Mg Tablet 10 Mg PO DAILY Cyclobenzaprine Hcl 10 Mg Tablet 1 Tab PO PRN BID PRN Tramadol Hcl 50 Mg Tablet 1 Tab PO TID PRN Vital Signs Vital Signs Date Time Temp Pulse Resp B/P (MAP) Pulse Ox O2 Delivery O2 Flow Rate FiO2 08/31/20 03:00 97.5 82 15 117/59 (78) 93 Room Air 97.5 Labs Laboratory Tests Test 08/29/20 09:28 08/29/20 11:35 08/29/20 16:16 08/29/20 16:35 Sodium Level 137 mmol/L (136-145) Potassium Level 4.3 mmol/L (3.5-5.1) Chloride Level 103 mmol/L (98-107) Carbon Dioxide Level 32 mmol/L (21-32) Anion Gap 2 (6-14) Blood Urea Nitrogen 24 mg/dL (7-20) Creatinine 0.8 mg/dL (0.6-1.0) Estimated GFR (Cockcroft-Gault) 71.8 Glucose Level 171 mg/dL (70-99) Calcium Level 8.4 mg/dL (8.5-10.1) Glucose (Fingerstick) 153 mg/dL (70-99) 153 mg/dL (70-99) Coronavirus (PCR) Not detected (Not Detected) Test 08/29/20 19:36 08/30/20 05:12 08/30/20 07:22 08/30/20 11:45 Glucose (Fingerstick) 205 mg/dL (70-99) 164 mg/dL (70-99) 121 mg/dL (70-99) Sodium Level 139 mmol/L (136-145) Potassium Level 4.5 mmol/L (3.5-5.1) Chloride Level 104 mmol/L (98-107) Carbon Dioxide Level 32 mmol/L (21-32) Anion Gap 3 (6-14) Blood Urea Nitrogen 26 mg/dL (7-20) Creatinine 0.8 mg/dL (0.6-1.0) Estimated GFR (Cockcroft-Gault) 71.8 Glucose Level 103 mg/dL (70-99) Calcium Level 8.4 mg/dL (8.5-10.1) Test 08/30/20 15:05 08/30/20 21:19 08/31/20 05:55 08/31/20 07:43 Glucose (Fingerstick) 156 mg/dL (70-99) 185 mg/dL (70-99) 119 mg/dL (70-99) Sodium Level 138 mmol/L (136-145) Potassium Level 4.4 mmol/L (3.5-5.1) Chloride Level 100 mmol/L (98-107) Carbon Dioxide Level 32 mmol/L (21-32) Anion Gap 6 (6-14) Blood Urea Nitrogen 29 mg/dL (7-20) Creatinine 0.9 mg/dL (0.6-1.0) Estimated GFR (Cockcroft-Gault) 62.6 Glucose Level 114 mg/dL (70-99) Calcium Level 8.6 mg/dL (8.5-10.1) Laboratory Tests Test 08/30/20 11:45 08/30/20 15:05 08/30/20 21:19 08/31/20 05:55 Glucose (Fingerstick) 121 mg/dL (70-99) 156 mg/dL (70-99) 185 mg/dL (70-99) Sodium Level 138 mmol/L (136-145) Potassium Level 4.4 mmol/L (3.5-5.1) Chloride Level 100 mmol/L (98-107) Carbon Dioxide Level 32 mmol/L (21-32) Anion Gap 6 (6-14) Blood Urea Nitrogen 29 mg/dL (7-20) Creatinine 0.9 mg/dL (0.6-1.0) Estimated GFR (Cockcroft-Gault) 62.6 Glucose Level 114 mg/dL (70-99) Calcium Level 8.6 mg/dL (8.5-10.1) Test 08/31/20 07:43 Glucose (Fingerstick) 119 mg/dL (70-99) Allergies Allergies Coded Allergies Type Severity Reaction Last Updated Verified dulaglutide Allergy Intermediate 07/27/20 Yes sitagliptin Allergy Intermediate 07/27/20 Yes morphine Adverse Reaction Intermediate Rash,Nausea and Confusion 07/27/20 Yes Disposition/Orders: D/C to Home w/ HH Justicifation of Admission Dx: Justifications for Admission: Justification of Admission Dx: Yes Cellulitis: Cellulitis INEZ BERUMEN MD Aug 31, 2020 08:27
[2020-08-31] MEDS: LACTOBACILLUS RHAMNOSUS GG 1 CAPSULE. PO SCH (09:54)
[2020-08-31 11:00] VITALS: BP 135/61
--- NOTE | 2020-08-31 11:57 | NUR ---
SW following for discharge planning. Spoke with RN and reviewed chart. SW met with pt today. Pt lives in [facility] which pt states is about [place] from [facility]. Pt stated she drove to [facility] and will drive home. Pt on room air, ADA diet, COVID negative. Pt requesting HH and pt has a discharge order in for today, home with HH. Pt has [employer] Medicare. Pt stated she had difficulty finding HH for her mother in the area in the past and stated no preference in provider. Pt choice of vendor form completed. THEODORE called and [facility] for [facility] ([phone]) to check to see if they can take this pt. THEODORE called [facility] ([phone]) and the provide PD services but not HH. THEODORE called the [facility] ([phone]) and they no longer have HH services as of May 06, 2020. THEODORE called Alice from [facility], (phone), (fax). Alice stated they are taking new patients and take pt's [employer] insurance. THEODORE phoned and faxed clinicals and discharge orders. Contact information provided to pt. No further THEODORE needs at this time. Addendum: 08/31/20 at 1309 by ARISTEO JAIMES Alice called back to say they can't accept this patient per staffing. Referral phoned and faxed to Daniela with [facility], (phone), (fax). Daniela confirmed they can staff pt and take pt's insurance. Pt notified.
--- NOTE | 2020-08-31 13:20 | NUR ---
DISCHARGE INSTRUCTIONS GIVEN, QUESTIONS AND CONCERNS ANSWERED, PATIENT VERBALIZED UNDERSTANDING OF DISCHARGE INFORMATION INCLUDING TAKING ALL MEDICATIONS INSTRUCTED AND FOLLOWING UP WITH HER PRIMARY PROVIDER IN 1-2 WEEKS. ALL PERSONAL BELONGINGS GATHERED AND PLACED IN BAGS PER THE PATIENT AND THIS LIBRARIAN SPECIAL LIBRARY, SALINE LOCK REMOVED FROMPATIENTS' RIGHT FA AND BANDAGE APPLIED.
--- NOTE | 2020-08-31 14:00 | NUR ---
PATIENT LEAVES THE UNIT PER W/C AND ACCOMPANIED BY THIS MASTER GLAZIER, EMOTIONAL SUPPORT GIVEN, FOLLOW UP APPOINTMENTS ENCOURAGED.
--- NOTE | 2020-09-03 12:21 | NUR ---
SW spoke with with [facility] and pt's start of care will be 09/04.
== END 2020-08-31 14:00 | disposition home health service (06) | DRG 603 ==
LOC: ER 17:13 → 5 NORTH 18:57
PROVIDERS: ADMIT Family Medicine; ATTEND Family Medicine
DX: L03.116 Cellulitis of left lower limb (principal); E11.22 Type 2 diabetes mellitus with diabetic chronic kidney disease; N18.2 Chronic kidney disease, stage 2 (mild); I12.9 Hypertensive chronic kidney disease with stage 1 through stage 4 chronic kidney disease, or unspecified chronic kidney disease; Z91.81 History of falling; D64.9 Anemia, unspecified; E11.42 Type 2 diabetes mellitus with diabetic polyneuropathy; M19.90 Unspecified osteoarthritis, unspecified site; Z79.4 Long term (current) use of insulin; Z79.899 Other long term (current) drug therapy; Z86.73 Personal history of transient ischemic attack (TIA), and cerebral infarction without residual deficits; Z87.891 Personal history of nicotine dependence; I89.0 Lymphedema, not elsewhere classified
CPT/HCPCS: 36415; 71045; 80048; 80053; 82962; 83605; 83880; 84484; 85025; 87040; 87077; 87205; 93005; 96365; 96375; J1815; J1940; J3490; U0003; 97110-GP; 97530-GO; 97530-GP; 97535-GO; 99285-25; G0378

== ENCOUNTER 2021-04-29 14:13 | Observation (INO) | payer MEDICARE ==
[~2021-04-29] VITALS: Ht 177.8 cm; Wt 136.6 kg
[~2021-04-29 14:13] MED LIST changes: +CLIN-94 PO; +CYCL10TA19 PO; -CYCL10TA2 PO; +FURO40TA4 PO; +INSU100I13 SQ; +INSU100V8 SQ; +LISI10TA16 PO; +POTA-121 PO
[2021-04-29] MEDS ORDERED: diphenhydrAMINE 50 MG/ML VIAL IVP ONE (16:15)
[2021-04-29] MEDS ORDERED: FAMOTIDINE 20 MG/2 ML VIAL IVP ONE (16:15)
[2021-04-29] MEDS ORDERED: IV NORMAL SALINE 500ML BAG 500 ML IV ONE (16:15)
[2021-04-29] MEDS ORDERED: ONDANSETRON PF 4 MG/2 ML VIAL. IVP ONE (16:15)
--- NOTE | 2021-04-29 16:53 | PHYS DOC ---
Past Medical History Past Medical History: Diabetes-Type II, Other Additional Past Medical Histor: 'you should have all my records' Past Surgical History: Hip Replacement, Other Additional Past Surgical Histo: 'you should have all my records of that' Smoking Status: Never Smoker Alcohol Use: None Drug Use: None General Adult EDM: Chief Complaint: NAUSEA/VOMITING/DIARRHEA HPI: HPI: Patient is a 65 year old diabetic female who presents with 1 week history of abdominal pain, nausea, vomiting and diarrhea that has worsened in the past 2 days. She called her primary care provider, who instructed her to seek evaluation in the emergency department. During her vomiting episodes, she has bilateral upper abdominal pain 10/10, but it is 1/10 at rest. In the past 2 days, she reports at least 6 episodes of diarrhea and 3 episodes of vomiting with multiple retches each day. She reports her nausea "comes in waves." She reports associated belching more than normal, she must sit up to sleep due to the reflux, and has not been able to sleep much due to having to ambulate frequently to go to the bathroom. She reports she has a "bad left hip," which makes it more difficult to ambulate. Patient denies history of hypertension and reports a negative Covid test earlier today. Patient states the only medication she took yesterday was Lantus and she has not taken any medications today. Patient does report she ate a small amount of food prior to arrival. Patient denies fever, chills, weakness, dizziness, chest pain, palpitations, shortness of breath, cough. She has no other complaints at this time. Review of Systems: Review of Systems: 12 systems reviewed. ROS negative except as mentioned in HPI. Heart Score: C/O Chest Pain: No Current Medications: Current Medications Medications (Trade) Dose Ordered Sig/John Start Time Stop Time Status Last Admin Dose Admin Diphenhydramine HCl (Benadryl) 25 mg 1X ONCE 04/29/21 16:15 04/29/21 16:16 DC Famotidine (Pepcid Vial) 20 mg 1X ONCE 04/29/21 16:15 04/29/21 16:16 DC Ondansetron HCl (Zofran) 8 mg 1X ONCE 04/29/21 16:15 04/29/21 16:16 DC Sodium Chloride 500 ml @ 500 mls/hr 1X ONCE 04/29/21 16:15 04/29/21 17:14 Allergies: Allergies: Allergies Coded Allergies Type Severity Reaction Last Updated Verified dulaglutide Allergy Intermediate 04/29/21 Yes sitagliptin Allergy Intermediate 04/29/21 Yes morphine Adverse Reaction Intermediate Rash,Nausea and Confusion 04/29/21 Yes Physical Exam: PE: Constitutional: Obese, somewhat poorly groomed, no acute distress, non-toxic appearance. Patient sits on the side of the bed and will not lay down due to limited hip mobility. Cardiovascular: Heart rate regular rhythm, no murmur. Lungs & Thorax: Bilateral breath sounds clear to auscultation. Abdomen: Bowel sounds normal, soft, no tenderness, no rebound or guarding, no masses, no pulsatile masses. Abdominal exam somewhat limited due to patient positioning. Skin: Warm, dry, no erythema, no rash. Back: No step-offs, no bony tenderness, no paraspinal tenderness, no CVA tenderness. Extremities: No tenderness, no cyanosis, no clubbing, ROM intact, bilateral lower extremity edema which is chronic. Neurologic: Alert and oriented x3, normal motor function, normal sensory function, no focal deficits noted. Current Patient Data: Vital Signs: Vital Signs Date Time Temp Pulse Resp B/P (MAP) Pulse Ox O2 Delivery O2 Flow Rate FiO2 04/29/21 15:21 98.2 86 14 195/99 (131) 99 Room Air 98.2 Radiology/Procedures: Radiology/Procedures: [] Course & Med Decision Making: Course & Med Decision Making Pertinent Labs and Imaging studies reviewed. (See chart for details) Work-up today includes urinalysis, blood draw. She denies history of hypertension, but has elevated blood pressure readings in the department. Patient will be provided with IV fluids, Pepcid, Zofran and Benadryl. Will reevaluate after medication administration. Patient's work-up today is largely unremarkable. She has no signs of dehydration, infection or other abnormal GI enzymes. Patient states that her symptoms have improved. Spoke to patient about p.o. challenge and discharge home. She expressed concern about her symptoms returning overnight, she would like to be admitted to ensure that she "is on the mend." At this time, I have no medical indication for admission. I have placed a call to her primary care provider, Dr. Henriquez, to discuss her case. 180: Spoke with Dr. Henriquez. He advised a renal ultrasound to avoid CT imaging of the abdomen. Additionally, he agreed to admit her overnight with 100 cc/h D5 LR and Zofran. Patient will be admitted to his care. Mj Disclaimer: Mj Disclaimer: This electronic medical record was generated, in whole or in part, using a voice recognition dictation system. Departure Departure Impression: Primary Impression: Hematuria Qualified Codes: R31.9 - Hematuria, unspecified Additional Impression: Nausea vomiting and diarrhea Admitting Physician: Michele Henriquez Condition: GUARDED Referrals: MICHELE HENRIQUEZ MD (PCP) JULIÁN CAMEJO Apr 29, 2021 16:52
[2021-04-29 16:55] LABS: BILIRUBIN,URINE NEGATIVE (NEG); CLARITY,URINE CLEAR; COLOR,URINE YELLOW; NITRITE,URINE NEGATIVE (NEG); PH,URINE 5.5 (<5.0-8.0); PROTEIN,URINE 100 mg/dL (NEG-TRACE); UROBILINOGEN,URINE 0.2 mg/dL (0.2 mg/dL)
[2021-04-29 17:09] LABS: BASO % 1 % (0-3); EOS # 0.1 x10^3/uL (0.0-0.7); EOS % 2 % (0-3); HEMATOCRIT 35.6 % (36.0-47.0); HEMOGLOBIN 11.6 g/dL (12.0-15.5); LYMPH # 1.2 x10^3/uL (1.0-4.8); LYMPH % 16 % (24-48); MEAN CORPUSCULAR HEMOGLOBIN 28 pg (25-35); MEAN CORPUSCULAR HGB CONC 33 g/dL (31-37); MEAN CORPUSCULAR VOLUME 85 fL (79-100); MONO # 0.4 x10^3/uL (0.0-1.1); MONO % 5 % (0-9); NEUT # 5.9 x10^3/uL (1.8-7.7); NEUT % 77 % (31-73); PLATELET COUNT 204 x10^3/uL (140-400); RED BLOOD COUNT 4.16 x10^6/uL (3.50-5.40); WHITE BLOOD COUNT 7.7 x10^3/uL (4.0-11.0)
[2021-04-29 17:17] LABS: BACTERIA,URINE MANY /HPF (0-FEW)
[2021-04-29 17:19] LABS: RBC,URINE 0 /HPF (0-2)
[2021-04-29 17:38] LABS: CALCIUM 8.9 mg/dL (8.5-10.1); CREATININE 0.8 mg/dL (0.6-1.0); GFR 71.5; POTASSIUM 4.7 mmol/L (3.5-5.1)
[2021-04-29 17:44] LABS: ALBUMIN 3.6 g/dL (3.4-5.0); ALBUMIN/GLOBULIN RATIO 0.9 (1.0-1.7); TOTAL BILIRUBIN 0.3 mg/dL (0.2-1.0); TOTAL PROTEIN 7.6 g/dL (6.4-8.2)
[2021-04-29] MEDS ORDERED: ONDANSETRON PF 4 MG/2 ML VIAL. IVP PRN (18:15)
--- NOTE | 2021-04-29 18:51 | NUR ---
The patient, BESSIE SHOEMAKER, 65 y/o, F admitted by MICHELE MONROY MD, was given written information regarding hospital policies, unit procedures and contact persons. Valuables were checked and left with her.
--- NOTE | 2021-04-29 18:59 | NUR ---
This nurse was not on unit at 1835 when ED Nurse supposedly called twice and there is no report summery sent or tube up, Patient was brought up to unit by another nurse or staff who did not provide care for this Patient.
[2021-04-29 19:00] VITALS: BP 155/86
--- NOTE | 2021-04-29 20:22 | RAD ---
EXAM: US RENAL BILAT 04/29/2021 6:54 PM INDICATION: Hematuria. COMPARISON: None TECHNIQUE: Grayscale and color Doppler ultrasound images of the kidneys and bladder FINDINGS: The right kidney measures 12.3 x 5.8 x 5.0 cm. The left kidney measures 13.2 x 5.9 x 5.2 cm. Renal echogenicity and cortical thickness are normal. No hydronephrosis. There is a 2.4 cm exophytic anech oic cyst with through transmission in the inferior right renal pole. The urinary bladder is incompletely distended, limiting evaluation. IMPRESSION: 1. No hydronephrosis. 2. 2.4 cm simple cyst in the inferior right renal pole. 3. Limited evaluation of the urinary bladder due to incomplete distention. Electronically signed by: Marge Martinez MD (04/29/2021 8:19 PM) TIMA
[2021-04-29] MEDS: IV DEXTROSE 5%-LACT RINGERS 1,000 ML IV SCH (20:51)
[2021-04-29 23:00] VITALS: BP 186/82
[2021-04-30] MEDS: traMADol 50 MG TABLET PO PRN ×2 (01:48→19:52)
[2021-04-30] MEDS: CYCLOBENZAPRINE 10 MG TABLET. PO PRN ×2 (01:48→19:51)
[2021-04-30 03:00] VITALS: BP 142/82
[2021-04-30] MEDS: IV DEXTROSE 5%-LACT RINGERS 1,000 ML IV SCH (03:44)
[2021-04-30 07:00] VITALS: BP 134/61
--- NOTE | 2021-04-30 08:21 | PDOC ---
Provider Note Date of Service: DATE: 04/30/21 TIME: 08:18 Provider Note [id number] Justifications for Admission Other Justification MICHELE MONROY MD Apr 30, 2021 08:21
--- NOTE | 2021-04-30 08:45 | HP ---
DATE OF SERVICE: 04/30/2021 ADMIT DATE: 04/29/2021 CHIEF COMPLAINT: Vomiting, diarrhea and gross hematuria. HISTORY OF PRESENT ILLNESS: A 65-year-old diabetic female, on insulin, lives [place] hours out of town and called the day prior to admission. She complained of intermittent vomiting and diarrhea over the last 3 days and episodes of bright red blood in her urine. There was no overt fever, chills, melena, hematochezia, new food exposure or any other obvious sources of problem. She came to the ER and exam was pretty unremarkable except for some microhematuria and she was admitted with IV fluids and has done pretty well overnight. She continues to have episodes of upper abdominal pain after she eats and a lot of heartburn type symptoms, for which she has been taking Maalox with some relief. Denies dysphagia, weight loss or choking. PAST MEDICAL HISTORY: Well known to have severe arthritis of the left hip and needs hip replacement, but has been declined by orthopedics until her diabetic control is better. She has been tolerating insulin in the last 2 to 3 months after failing other diabetic meds. SOCIAL HISTORY: She is single, lives alone, outside of town. No family to my knowledge. Nonsmoker, nondrinker. FAMILY HISTORY: Unremarkable. REVIEW OF SYSTEMS: A 12-point review of systems unremarkable. OBJECTIVE: ENT: All within normal limits. NECK: No masses, nodes or bruits. LUNGS: Clear without tachypnea. CARDIOVASCULAR: Regular rate. No tachycardia or murmur. ABDOMEN: Mildly tender in the epigastrium and right upper quadrant. No masses are felt. EXTREMITIES: Left hip is relatively immobile and painful. There is 2+ edema of both lower extremities. Pedal pulses are good. NEUROLOGIC: Physiologic. ASSESSMENT: 1. Recurrent vomiting and diarrhea, etiology is unclear. Two episodes of acid reflux symptoms and upper abdominal pain, possibility of gallbladder disease exist. 2. Severe left hip degenerative joint disease. 3. Insulin-dependent type 2 diabetes. 4. Microhematuria with recent gross hematuria. PLAN: Renal sonogram has been done. We will get a gallbladder sonogram also. Urine culture is pending. We will let her eat and drink normally now. We will need a cystoscopy as an outpatient per Urology if her renal sonogram is unremarkable. We will add Pepcid as well. DBJ/KHARI DAVIS: Baljinder TID: [id number]
[2021-04-30] MEDS: FAMOTIDINE 20 MG TABLET. PO SCH ×2 (09:10→19:51)
[2021-04-30] MEDS: POTASSIUM CHLORIDE 20 MEQ TABLET.ER. PO SCH (09:10)
[2021-04-30] MEDS: FUROSEMIDE 40 MG TABLET. PO SCH (09:10)
[2021-04-30] MEDS: LISINOPRIL 10 MG TABLET PO SCH (09:11)
--- NOTE | 2021-04-30 09:37 | RAD ---
EXAM: Abdomen sonogram. HISTORY: Pain. TECHNIQUE: Sonographic imaging of the abdomen was performed. COMPARISON: None. FINDINGS: The liver is upper normal in size. No focal hepatic lesion is seen. There is cholelithiasis . There is no cholecystitis. The common bile duct is normal in caliber. The right kidney is unremarka ble. The pancreas is partially obscured due to bowel gas. The inferior vena cava is patent. IMPRESSION: 1. Cholelithiasis. 2. No acute sonographic finding. Electronically signed by: Debi Lynne MD (04/30/2021 9:35 AM) [id number]
[2021-04-30 11:00] VITALS: BP 125/49
--- NOTE | 2021-04-30 11:28 | NUR ---
SS following for discharge planning. SS reviewed pt chart and discussed with pt RN. Pt is from home and is currently on room air. COVID19 test pending. Pt had abdomen CT today. Discharge plan is currently to home when medically ready for discharge. SS will continue to follow for discharge planning.
[2021-04-30 15:46] VITALS: BP 139/68
[2021-04-30 19:00] VITALS: BP 118/56
[2021-04-30] MEDS ORDERED: INSULIN GLARGINE SYRINGE. SQ SCH (21:00)
[2021-04-30 23:00] VITALS: BP 139/53
[2021-05-01] MEDS: traMADol 50 MG TABLET PO PRN (01:39)
[2021-05-01 03:00] VITALS: BP_SYST 113; BP_SYST 188; BP_DIAS 64; BP_DIAS 86
[2021-05-01 07:00] VITALS: BP 133/64
--- NOTE | 2021-05-01 08:22 | PDOC ---
Provider Note Date of Service: DATE: 05/01/21 TIME: 08:22 Provider Note [id number] Justifications for Admission Other Justification MICHELE MONROY MD May 01, 2021 08:22
--- NOTE | 2021-05-01 08:49 | DS ---
DATE OF DISCHARGE: 05/01/2021 HOSPITAL SUMMARY: The patient came in with 3 days of intermittent nausea, vomiting, diarrhea and episodes of gross hematuria. CBC and chemistry profile unremarkable. Urine showed moderate blood, but no growth on culture. Renal sonogram showed only a small right-sided renal cysts and no hydronephrosis or lesions. Gallbladder sonogram showed multiple gallstones with no thickening or inflammatory changes. She was given IV fluids overnight and her symptoms improved with the use of Pepcid and is able to tolerate a regular diet. She will be seeing a general surgeon for consultation about her gallstones the day prior to dismissal. FINAL DIAGNOSES: 1. Episodic abdominal pain, etiology undetermined. 2. Gastroesophageal reflux disease. 3. Gallstones, possibly symptomatic for gross and microhematuria, etiology unknown. OPERATIONS: None. PROCEDURES: None. COMPLICATIONS: None. CONSULTATIONS: Dr. Rodriguez's group. DISPOSITION: She will take Pepcid 20 mg twice a day as needed for heartburn as [id number]. The insulin and home meds remain the same. Low fat diet and encouraged to avoid milk products. She understands she will need to see a urologist in her home town to evaluate her bladder for likely cystoscopy given the risk of bladder tumor given the micro and macro hematuria. Gallbladder surgery may be accomplished as an outpatient if she decides to do this. She is trying to get dental work done, so she can get a hip replacement and this is pending as well. ANNA DAVIS: Baljinder TID: [id number]
[2021-05-01] MEDS: POTASSIUM CHLORIDE 20 MEQ TABLET.ER. PO SCH (08:51)
[2021-05-01] MEDS: FUROSEMIDE 40 MG TABLET. PO SCH (08:52)
[2021-05-01] MEDS: LISINOPRIL 10 MG TABLET PO SCH (08:52)
[2021-05-01] MEDS: FAMOTIDINE 20 MG TABLET. PO SCH (08:56)
--- NOTE | 2021-05-01 10:25 | NUR ---
SS following up with discharge planning. SS reviewed pt chart and discussed with pt RN. Pt is currently on room air. COVID19 negative. Discharge order on the chart for home with self care.
[2021-05-01 11:00] VITALS: BP 138/47
--- NOTE | 2021-05-01 14:32 | NUR ---
Discharge Note: BESSIE SHOEMAKER [address] Discharge instructions and discharge home medications reviewed with the patient and a copy given. All questions have been answered and understanding verbalized. The following instructions and handouts were given: Home meds as directed. pepcid BID, OTC med Already scheduled out patient consult with Dr. Rodriguez regarding cholelithiasis. Follow up with PCP in weeks. Discontinued lines and drains: peripheral IV intact, patient tolerated removal, no complications noted. Patient discharged to home with self care via wheelchair at 1348.
== END 2021-05-01 13:48 | disposition home or self-care (01) ==
LOC: ER 14:13 → 5 SOUTH 16:10
PROVIDERS: ADMIT Family Medicine; ATTEND Family Medicine
DX: R11.2 Nausea with vomiting, unspecified (principal); Z20.822 Contact with and (suspected) exposure to COVID-19; R19.7 Diarrhea, unspecified; K21.9 Gastro-esophageal reflux disease without esophagitis; K80.20 Calculus of gallbladder without cholecystitis without obstruction; M16.12 Unilateral primary osteoarthritis, left hip; M19.90 Unspecified osteoarthritis, unspecified site; E11.9 Type 2 diabetes mellitus without complications; R31.29 Other microscopic hematuria; R31.0 Gross hematuria; Z96.649 Presence of unspecified artificial hip joint; Z79.4 Long term (current) use of insulin
CPT/HCPCS: 36415; 76705; 76770; 80053; 81001; 82150; 82962; 83690; 85025; 87077; 87086; 87186; 87426; 96361; 96374; 96375; 96376; 99284; G0378; J1200; J1815; J2405; J3490; J7040; J7121; U0003; U0005; G0379

== ENCOUNTER 2021-05-09 18:27 | Emergency (ER) | payer MEDICARE ==
[~2021-05-09] VITALS: Ht 177.8 cm; Wt 127.0 kg
[2021-05-09 22:33] LABS: BILIRUBIN,URINE NEGATIVE (NEG); CLARITY,URINE CLEAR; COLOR,URINE YELLOW; NITRITE,URINE NEGATIVE (NEG); PH,URINE 5.5 (<5.0-8.0); PROTEIN,URINE 100 mg/dL (NEG-TRACE); UROBILINOGEN,URINE 0.2 mg/dL (0.2 mg/dL)
--- NOTE | 2021-05-09 22:36 | PHYS DOC ---
Past Medical History Past Medical History: Arthritis, Diabetes-Type II, Gallstones, Hypertension, Renal Disease, Stroke, Other Additional Past Medical Histor: chronic lymphadema, dental caries Past Surgical History: Hip Replacement, Other Additional Past Surgical Histo: 'you should have all my records of that' Smoking Status: Never Smoker Alcohol Use: None Drug Use: None General Adult EDM: Chief Complaint: NAUSEA/VOMITING/DIARRHEA HPI: HPI: Patient is a 65-year-old female that presents today with upper abdominal pain. Patient states that she was here in the month of April was admitted and told that she had gallstones, today Dr. Bowden's office called her and told her that she has an appointment in 2 weeks for her removal of her gallbladder, due to increased pain today she is unsure if she can wait that long. Also she states the swelling in her legs which she chronically has lymphedema is worse today, she also states that she has not had a bowel movement in over 10 days. Patient denies chest pain or shortness of air. Patient states that while waiting in the waiting room she took a tramadol 1 at 7:30 PM and 1 at 9 PM, she states that took the edge of the pain away. Patient also states that she has chronic left hip pain for which she has multiple medical issues that prevent her from having any kind hip surgery Review of Systems: Review of Systems: Constitutional: Denies fever or chills. [] Eyes: Denies change in visual acuity. [] HENT: Denies nasal congestion or sore throat. [] Respiratory: Denies cough or shortness of breath. [] Cardiovascular: Denies chest pain or edema. [] GI: abdominal pain, nausea, constipation [] : Denies dysuria. [] Musculoskeletal: increase swelling of legs[] Integument: Denies rash. [] Neurologic: Denies headache, focal weakness or sensory changes. [] Endocrine: Denies polyuria or polydipsia. [] Lymphatic: Denies swollen glands. [] Psychiatric: Denies depression or anxiety. [] Heart Score: C/O Chest Pain: N/A Risk Factors: Risk Factors: DM, Current or recent (<one month) smoker, HTN, HLP, family history of CAD, obesity. Risk Scores: Score 0 - 3: 2.5% MACE over next 6 weeks - Discharge Home Score 4 - 6: 20.3% MACE over next 6 weeks - Admit for Clinical Observation Score 7 - 10: 72.7% MACE over next 6 weeks - Early Invasive Strategies Allergies: Allergies: Allergies Coded Allergies Type Severity Reaction Last Updated Verified dulaglutide Allergy Intermediate 04/29/21 Yes sitagliptin Allergy Intermediate 04/29/21 Yes morphine Adverse Reaction Intermediate Rash,Nausea and Confusion 04/29/21 Yes Physical Exam: PE: Constitutional: Well developed, well nourished, mild distress, nontoxic HENT: Normocephalic, atraumatic, bilateral external ears normal, oropharynx moist, no oral exudates, nose normal. [] Eyes: PERRLA, EOMI, conjunctiva normal, no discharge. [] Neck: Normal range of motion, no tenderness, supple, no stridor. [] Cardiovascular:Heart rate regular rhythm, no murmur [] Lungs & Thorax: Bilateral breath sounds clear to auscultation [] Abdomen: Bowel sounds noted in 4 quadrants, hyperactive in nature, patient does have pain with palpation in the epigastrium region, also pain over the left lower quadrant Skin: Warm, dry, no erythema, no rash. [] Back: No tenderness, no CVA tenderness. [] Extremities: No tenderness, no cyanosis, no clubbing, limited range of motion noted due to chronic lymphedema, edema noted at 4+ Neurologic: Alert and oriented X 3, normal motor function, normal sensory function, no focal deficits noted. [] Psychologic: Affect normal, judgement normal, mood normal. [] Current Patient Data: Labs: Laboratory Tests Test 05/09/21 21:33 05/09/21 23:05 Urine Collection Type Unknown Urine Color Yellow Urine Clarity Clear Urine pH 5.5 Urine Specific Vanleer 1.020 Urine Protein 100 mg/dL Urine Glucose (UA) Negative mg/dL Urine Ketones (Stick) Negative mg/dL Urine Blood Moderate Urine Nitrite Negative Urine Bilirubin Negative Urine Urobilinogen Dipstick 0.2 mg/dL Urine Leukocyte Esterase Negative Urine RBC 1-2 /HPF Urine WBC 5-10 /HPF Urine Squamous Epithelial Cells Mod /LPF Urine Bacteria Many /HPF Urine Mucus Slight /LPF White Blood Count 9.0 x10^3/uL Red Blood Count 4.08 x10^6/uL Hemoglobin 11.4 g/dL Hematocrit 34.9 % Mean Corpuscular Volume 86 fL Mean Corpuscular Hemoglobin 28 pg Mean Corpuscular Hemoglobin Concent 33 g/dL Red Cell Distribution Width 14.3 % Platelet Count 179 x10^3/uL Neutrophils (%) (Auto) 65 % Lymphocytes (%) (Auto) 23 % Monocytes (%) (Auto) 7 % Eosinophils (%) (Auto) 5 % Basophils (%) (Auto) 1 % Neutrophils # (Auto) 5.9 x10^3/uL Lymphocytes # (Auto) 2.1 x10^3/uL Monocytes # (Auto) 0.6 x10^3/uL Eosinophils # (Auto) 0.4 x10^3/uL Basophils # (Auto) 0.0 x10^3/uL Sodium Level 139 mmol/L Potassium Level 4.1 mmol/L Chloride Level 103 mmol/L Carbon Dioxide Level 30 mmol/L Anion Gap 6 Blood Urea Nitrogen 24 mg/dL Creatinine 0.8 mg/dL Estimated GFR (Cockcroft-Gault) 71.5 BUN/Creatinine Ratio 30 Glucose Level 111 mg/dL Calcium Level 8.9 mg/dL Total Bilirubin 0.3 mg/dL Aspartate Amino Transf (AST/SGOT) 19 U/L Alanine Aminotransferase (ALT/SGPT) 25 U/L Alkaline Phosphatase 113 U/L Total Protein 7.3 g/dL Albumin 3.5 g/dL Albumin/Globulin Ratio 0.9 Lipase 256 U/L Vital Signs: Vital Signs Date Time Temp Pulse Resp B/P (MAP) Pulse Ox O2 Delivery O2 Flow Rate FiO2 05/09/21 21:45 97.8 80 18 191/93 (125) 100 97.8 EKG: EKG: [] Radiology/Procedures: Radiology/Procedures: REASON: abdominal pain, know gall stone, renal failure history PROCEDURE: CT ABDOMEN PELVIS WO CONTRAST Exam: CT of abdomen and pelvis without contrast INDICATION: Abdominal pain TECHNIQUE: Sequential axial images through the abdomen and pelvis obtained without IV contrast. Sagittal and coronal reformatted images were reconstructed from the axial data and reviewed. Exposure: One or more of the following in the visualized dose reduction techniques were utilized for this examination: 1. Automated exposure control 2. Adjustment of the MA and/or KV according to patient size 3. Use of iterative of reconstructive technique Comparisons: Ultrasound 02/28/2021 FINDINGS: Heart size is normal. No pericardial effusion. Visualized lung bases are clear. No pleural effusion. Evaluation of solid organs is limited secondary to noncontrast technique. Liver, spleen, pancreas, gallbladder and adrenals are unremarkable. No perinephric inflammation or hydronephrosis. No renal or ureteral calculi are identified. Bladder is partially distended and not well evaluated. Uterus is nonenlarged. No abnormal adnexal mass. Large and small bowel are unremarkable. Appendix is normal. No free intra- abdominal air or fluid. No obstruction. Abdominal aorta has a normal course and caliber. No enlarged intra-abdominal lymph nodes are identified. Degenerative change at the hip joints greater on the left. No suspicious osseous lesions or acute fractures. IMPRESSION: No acute process identified within the abdomen or pelvis. Electronically signed by: Génesis Aldridge MD (05/09/2021 10:59 PM) [facility] REASON: gall stones PROCEDURE: ABDOMEN LTD US ABDOMEN LIMITED: 05/09/2021 11:18 PM Indication: 65 years old Female. Gallstones Comparison: None. TECHNIQUE: Sonographic evaluation of the right upper quadrant was performed utilizing grayscale and color Doppler imaging. FINDINGS: Liver: Homogenous normal echotexture.. There is hepatopedal flow within the portal venous system. Right hepatic lobe measures 18.8 cm. Biliary system: CBD measures 3 mm. There is no intrahepatic or extrahepatic biliary dilatation. Gallbladder: No gallstones, wall thickening or pericholecystic fluid. . Sonographic Sanchez sign: Negative Pancreas: Visualized head and uncinate process are unremarkable. Body and tail are not visualized. Right kidney: 13.7 x 4.7 x 5.5 cm. No hydronephrosis. Normal echotexture without focal mass or renal calculus. Free fluid:None. IMPRESSION: No sonographic evidence for cholelithiasis or acute cholecystitis. Electronically signed by: Laura Torrez MD (05/10/2021 12:13 AM) [facility] Course & Med Decision Making: Course & Med Decision Making Pertinent Labs and Imaging studies reviewed. (See chart for details) [id number] reassessed patient patient is sitting up on the bedside no acute distress, has been up to the bedside commode, no complaints of nausea at this time, has not vomited while been in the emergency department and has not requested any pain medications. I reviewed radiological studies and laboratory studies with the patient and noted that they were all improved since her last hospitalization. Informed patient that she will be discharged to keep follow-up appointment with Dr. Bowden as previously scheduled and to follow-up with Dr. Monroy for her concerns regarding her swelling in her legs. Patient also informed to continue the Pepcid I was was previously prescribed for her and to follow a low-fat diet and that information was given to patient. Patient verbalized understanding of this instructions. Patient is concerned that she does not drive at night and the emergency department staff was notified. ] Mj Disclaimer: [employer] anthony Disclaimer: This electronic medical record was generated, in whole or in part, using a voice recognition dictation system. Departure Departure Impression: Primary Impression: Abdominal pain Qualified Codes: R10.13 - Epigastric pain Additional Impression: Nausea alone Disposition: HOME / SELF CARE / HOMELESS Condition: STABLE Referrals: MICHELE MONROY MD (PCP) Patient Instructions: Abdominal Pain, Diet for Gastroesophageal Reflux Disease, Adult Additional Instructions: Continue home medications as previously prescribed Follow a low-fat diet Zofran as needed for nausea Keep follow-up appointment with Dr. Bowden in 2 weeks Follow-up with Dr. Monroy by phone in the a.m. for update on status Scripts Ondansetron Hcl (ZOFRAN) 4 Mg Tablet 1 TAB PO Q6HRS for nausea, #20 TAB Prov: CARMELINA PORTER WORKFORCE MANAGEMENT MANAGER 05/10/21 CARMELINA PORTER WORKFORCE MANAGEMENT MANAGER May 09, 2021 22:36
[2021-05-09 22:40] LABS: BACTERIA,URINE MANY /HPF (0-FEW)
--- NOTE | 2021-05-09 23:01 | RAD ---
Exam: CT of abdomen and pelvis without contrast INDICATION: Abdominal pain TECHNIQUE: Sequential axial images through the abdomen and pelvis obtained without IV contrast. Sagit иван and coronal reformatted images were reconstructed from the axial data and reviewed. Exposure: One or more of the following in the visualized dose reduction techniques were utilized for this examination: 1. Automated exposure control 2. Adjustment of the MA and/or KV according to patient size 3. Use of iterative of reconstructive technique Comparisons: Ultrasound 02/28/2021 FINDINGS: Heart size is normal. No pericardial effusion. Visualized lung bases are clear. No pleural effusion. Evaluation of solid organs is limited secondary to noncontrast technique. Liver, spleen, pancreas, gallbladder and adrenals are unremarkable. No perinephric inflammation or hydronephrosis. No renal or ureteral calculi are identified. Bladder is partially distended and not well evaluated. Uterus is nonenlarged. No abnormal adnexal mas s. Large and small bowel are unremarkable. Appendix is normal. No free intra-abdominal air or fluid. No obstruction. Abdominal aorta has a normal course and caliber. No enlarged intra-abdominal lymph nodes are identified. Degenerative change at the hip joints greater on the left. No suspicious osseous lesions or acute fra ctures. IMPRESSION: No acute process identified within the abdomen or pelvis. Electronically signed by: Génesis Aldridge MD (05/09/2021 10:59 PM) [facility]
[2021-05-09 23:14] LABS: BASO % 1 % (0-3); EOS # 0.4 x10^3/uL (0.0-0.7); EOS % 5 % (0-3); HEMATOCRIT 34.9 % (36.0-47.0); HEMOGLOBIN 11.4 g/dL (12.0-15.5); LYMPH # 2.1 x10^3/uL (1.0-4.8); LYMPH % 23 % (24-48); MEAN CORPUSCULAR HEMOGLOBIN 28 pg (25-35); MEAN CORPUSCULAR HGB CONC 33 g/dL (31-37); MEAN CORPUSCULAR VOLUME 86 fL (79-100); MONO # 0.6 x10^3/uL (0.0-1.1); MONO % 7 % (0-9); NEUT # 5.9 x10^3/uL (1.8-7.7); NEUT % 65 % (31-73); PLATELET COUNT 179 x10^3/uL (140-400); RED BLOOD COUNT 4.08 x10^6/uL (3.50-5.40); RED CELL DISTRIBUTION WIDTH 14.3 % (11.5-14.5)
[2021-05-09 23:25] LABS: CALCIUM 8.9 mg/dL (8.5-10.1); CREATININE 0.8 mg/dL (0.6-1.0); GFR 71.5; POTASSIUM 4.1 mmol/L (3.5-5.1)
[2021-05-09 23:31] LABS: ALBUMIN 3.5 g/dL (3.4-5.0); ALBUMIN/GLOBULIN RATIO 0.9 (1.0-1.7); TOTAL BILIRUBIN 0.3 mg/dL (0.2-1.0); TOTAL PROTEIN 7.3 g/dL (6.4-8.2)
--- NOTE | 2021-05-10 00:15 | RAD ---
US ABDOMEN LIMITED: 05/09/2021 11:18 PM Indication: 65 years old Female. Gallstones Comparison: None. TECHNIQUE: Sonographic evaluation of the right upper quadrant was performed utilizing grayscale and c olor Doppler imaging. FINDINGS: Liver: Homogenous normal echotexture.. There is hepatopedal flow within the portal venous system. Rig ht hepatic lobe measures 18.8 cm. Biliary system: CBD measures 3 mm. There is no intrahepatic or extrahepatic biliary dilatation. Gallbladder: No gallstones, wall thickening or pericholecystic fluid. . Sonographic Sanchez sign: Nega tive Pancreas: Visualized head and uncinate process are unremarkable. Body and tail are not visualized. Right kidney: 13.7 x 4.7 x 5.5 cm. No hydronephrosis. Normal echotexture without focal mass or renal calculus. Free fluid:None. IMPRESSION: No sonographic evidence for cholelithiasis or acute cholecystitis. Electronically signed by: Laura Torrez MD (05/10/2021 12:13 AM) [facility]
[2021-05-10 00:30] VITALS: BP 178/100
[2021-05-10] MEDS ORDERED: ONDA4TAB7 PO (00:52)
== END 2021-05-10 01:01 | disposition home or self-care (01) ==
LOC: ER 18:27
DX: R10.13 Epigastric pain (principal); R11.0 Nausea; R22.43 Localized swelling, mass and lump, lower limb, bilateral; G89.29 Other chronic pain; M25.552 Pain in left hip; E11.22 Type 2 diabetes mellitus with diabetic chronic kidney disease; I12.9 Hypertensive chronic kidney disease with stage 1 through stage 4 chronic kidney disease, or unspecified chronic kidney disease; N18.9 Chronic kidney disease, unspecified; Z88.5 Allergy status to narcotic agent; Z88.8 Allergy status to other drugs, medicaments and biological substances
CPT/HCPCS: 36415; 74176; 76705; 80053; 81001; 83690; 85025; 87077; 87086; 87186; 99284-25

== ENCOUNTER → 2021-08-02 | Outpatient (CLI) | payer MEDICARE ==
[2021-07-06 11:00] VITALS: BP 155/72
[~2021-08-02] MED LIST changes: +ASPI325T8 PO; +FAMO10TA26 PO; +ONDA4TAB7 PO
--- NOTE | 2021-08-02 15:40 | RAD ---
EXAM: Chest and left ribs, 4 views; pelvis and bilateral hips, 4 views. HISTORY: Pain. COMPARISON: None. FINDINGS: Chest and left ribs: A frontal view of the chest and 4 views of the left ribs are obtained. There is lingular and left lower lobe atelectasis or interstitial infiltrate. There is no convincing displaced fracture. Pelvis and bilateral hips: A frontal view the pelvis and frontal and frog-leg views of both hips are obtained. There is severe left hip joint space narrowing with subchondral sclerosis, subchondral cyst formation and marginal spurring. There is associated bony remodeling with flattening and decreased s ize of the femoral head and body of the superior articular aspect of the acetabulum. There is no conv incing cortical collapse. The right femoral head is normal in configuration and seated appropriately. There are degenerative changes throughout the visualized lumbar spine, not formally assessed on this exam. IMPRESSION: 1. Severe end-stage left hip osteoarthritis with associated bony remodeling. 2. Multilevel degenerative change involving the lumbar spine, not formally assessed on this exam. 3. Lingular and left lower lobe atelectasis or interstitial infiltrate. No convincing displaced rib f racture is seen. Electronically signed by: Debi Lynne MD (08/02/2021 3:37 PM) [id number]
== END ==
LOC: RAD 13:32
PROVIDERS: ATTEND Family Medicine
DX: M16.12 Unilateral primary osteoarthritis, left hip (principal); M47.816 Spondylosis without myelopathy or radiculopathy, lumbar region; R07.81 Pleurodynia
CPT/HCPCS: 71101; 73521